=== PATIENT | female | born 1940 | race Caucasian/White ===

== ENCOUNTER → 2017-01-23 | Outpatient (CLI) | payer MEDICARE ==
--- NOTE | 2017-01-26 07:15 | MM ---
Reason for exam: screening (asymptomatic). Last mammogram was performed 1 year ago. History: Patient is postmenopausal and is nulliparous. Family history of breast cancer in maternal cousin at age 65. Physical Findings: A clinical breast exam by your physician is recommended on an annual basis and results should be correlated with mammographic findings. MG 3D Screening Mammo W/Cad Bilateral CC and MLO view(s) were taken. Prior study comparison: January 14, 2016, bilateral MG screening mammo w CAD. January 12, 2015, bilateral MG screening mammo w CAD. The breast tissue is almost entirely fat. No significant changes when compared with prior studies. ASSESSMENT: Negative, BI-RAD 1 RECOMMENDATION: Routine screening mammogram of both breasts in 1 year.
== END | disposition home or self-care (01) ==
LOC: RADMAMWWP 07:40
PROVIDERS: ATTEND Family Medicine
DX: Z12.31 Encounter for screening mammogram for malignant neoplasm of breast (principal)
CPT/HCPCS: 77063; G0202

== ENCOUNTER → 2017-06-25 | Outpatient (CLI) | payer MEDICARE ==
--- NOTE | 2017-06-26 08:56 | MR ---
EXAMINATION TYPE: MR shoulder LT wo con DATE OF EXAM: 06/25/2017 COMPARISON: Outside left shoulder x-ray June 09, 2017. HISTORY: Left shoulder pain TECHNIQUE: Multiplanar, multisequence imaging of the left shoulder is performed without contrast. FINDINGS: Exam is markedly suboptimal as there is significant motion artifact degradation. Rotator Cuff: Supraspinatus tendon is suspected fully torn up to level of the acromion seen best para coronal image 15. Infraspinatus tendon is felt to have increased signal with partial tear distally mo st prominent along the bursal surface. There is mild to moderate atrophy of supraspinatus muscle bulk . There is more mild atrophy of the infraspinatus muscle bulk. Subscapularis tendon is not well-visualized and suspected torn with retraction. Muscle bulk is mainta ined. Acromioclavicular Joint: There is joint space loss and spurring from the distal clavicle. There is hi gh riding humeral head. Glenohumeral Joint: There is moderate to large glenohumeral joint effusion. There is joint space loss with spurring from the inferior medial humeral head margin. There is large subchondral cysts superio r osseous labrum paracoronal image 13. Labrum: Degenerative tear superior labrum is felt present. Biceps Tendon: The long head of biceps is in normal location within bicipital groove. Bone marrow signal: No focal abnormal marrow signal is appreciated. Other: No additional significant abnormality is appreciated. IMPRESSION: Suboptimal study. 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 Moderate to advanced degenerative changes glenohumeral and acromiocla vicular joint. Probable full-thickness subscapularis and superior labral tears.
== END ==
LOC: RADMRIMAIN 10:44
PROVIDERS: ATTEND Orthopaedic Surgery
DX: M25.512 Pain in left shoulder (principal)

== ENCOUNTER → 2018-05-12 | Outpatient (CLI) | payer MEDICARE ==
--- NOTE | 2018-05-12 16:55 | BD ---
EXAMINATION TYPE: Axial Bone Density DATE OF EXAM: 05/12/2018 CLINICAL HISTORY: Height: 59.5 inches Weight: 222 FRAX RISK QUESTIONS: Alcohol (3 or more units per day): no Family History (Parent hip fracture): no Glucocorticoids (More than 3mos): no (Ex: prednisone, prednisolone, methylprednisolone, dexamethasone, and hydrocortisone). History of Fracture in Adulthood: yes, foot Secondary Osteoporosis: 1. Type 1 Diabetes: no 2. Hyperthyroidism: no 3. Menopause before 45: no 4. Malnutrition: no 5. Chronic liver disease: no Rheumatoid Arthritis: no Current Tobacco Use: no RISK FACTORS HISTORY OF: Family History of Osteoporosis: unsure Active: yes Diet low in dairy products/other sources of calcium: several servings a week Postmenopausal woman: yes Take estrogen and/or progesterone medications: no Lost more than 2 inches in height since high school: no, previously height was about 62 inches Frequent falls: no Poor Health: no Hyperparathyroidism: no Adrenal Insufficiency: no MEDICATIONS: Prednisone or other steroids: no Thyroid Medications: over the counter Which medication: SEA KELP Osteoporosis Medications: no Additional Medications: calcium & Vitamin D Additional History: osteoarthritis; thyroid nodules & recent biopsy of said; bilateral knee replacem ent EXAM MEASUREMENTS: Bone mineral densitometry was performed using the [employer] System. Bone mineral density as measured about the Lumbar spine is: ----- L1-L4(G/cm2): 1.438 T Score Values are as follows: ----- L2: 1.9 ----- L3: 2.4 ----- L4: 3.9 ----- L1-L4: 2.2 Bone mineral density has: Increased 4.7% since study of: 03/04/2009 Bone mineral density about the R hip (g/cm2): 0.804 Bone mineral density about the L hip (g/cm2): 0.798 T Score values are as follows: -----R Neck: -1.7 -----L Neck: -1.7 -----R Total: -0.5 -----L Total: -0.9 Bone mineral density has: Decreased -3.3% since study of: 03/04/2009 (more recent study done [email or web address]) IMPRESSION: Osteopenia (T Score between -2.5 and -1). There is slightly increased risk of fracture and the patient may be considered for treatment. Re-Screen 2-5 years. NOTE: T-SCORE=SD OF THE YOUNG ADULT MEAN.
--- NOTE | 2018-05-15 13:22 | MM ---
Reason for exam: screening (asymptomatic). Last mammogram was performed 1 year and 4 months ago. History: Patient is postmenopausal and is nulliparous. Family history of breast cancer in maternal cousin at age 65. MG 3D Screening Mammo W/Cad Bilateral CC and MLO view(s) were taken. Prior study comparison: January 23, 2017, bilateral MG 3d screening mammo w/cad. January 14, 2016, bilateral MG screening mammo w CAD. There are scattered fibroglandular densities. Stable benign calcifications. No discrete abnormallity. No significant changes when compared with prior studies. ASSESSMENT: Benign, BI-RAD 2 RECOMMENDATION: Routine screening mammogram of both breasts in 1 year.
== END | disposition home or self-care (01) ==
LOC: RADMAMWWP 10:06
PROVIDERS: ATTEND Family Medicine
DX: Z12.31 Encounter for screening mammogram for malignant neoplasm of breast (principal); M85.851 Other specified disorders of bone density and structure, right thigh; M85.852 Other specified disorders of bone density and structure, left thigh
CPT/HCPCS: 77063; 77067; 77080

== ENCOUNTER 2018-08-04 14:57 | Inpatient (IN) | payer MEDICARE ==
[2018-08-04] MEDS ORDERED: IPRATROPIUM-ALBUTEROL 3 ML NEB INHALATION STA (15:40)
--- NOTE | 2018-08-04 16:00 | XR ---
EXAMINATION TYPE: XR chest 2V DATE OF EXAM: 08/04/2018 COMPARISON: NONE HISTORY: Shortness of breath TECHNIQUE: Frontal and lateral views of the chest are obtained. FINDINGS: Scattered senescent parenchymal changes noted. Hyperinflation compatible with COPD. No evidence for infiltrate. No evidence for atelectasis. Heart size is stable. Fixed hiatal hernia. Mediastinal structures are stable and grossly unremarkable. No evidence for hilar prominence. Degenerative changes dorsal spine. IMPRESSION: 1. No evidence for acute pulmonary disease.
[2018-08-04 16:30] LABS: Basophils % (A) 0 %; Eosinophils # (A) 0.2 k/uL (0-0.7); Eosinophils % (A) 2 %; HCT 43.1 % (34.0-46.0); HGB 13.4 gm/dL (11.4-16.0); Lymphocytes # (A) 1.5 k/uL (1.0-4.8); Lymphocytes % (A) 13 %; MCH 25.3 pg (25.0-35.0); MCHC 31.1 g/dL (31.0-37.0); MCV 81.1 fL (80.0-100.0); Mean Platelet Volume 6.8; Monocytes # (A) 0.8 k/uL (0-1.0); Monocytes % (A) 6 %; Neutrophils % (A) 77 %; Platelet Count 203 k/uL (150-450); RBC 5.31 m/uL (3.80-5.40); RDW 15.7 % (11.5-15.5); WBC 11.6 k/uL (3.8-10.6)
[2018-08-04 16:37] LABS: ALT 63 U/L (9-52); AST 27 U/L (14-36); Albumin 3.5 g/dL (3.5-5.0); Alkaline Phosphatase 92 U/L (38-126); Anion Gap 7 mmol/L; Blood Urea Nitrogen 30 mg/dL (7-17); Calcium 8.7 mg/dL (8.4-10.2); Carbon Dioxide 24 mmol/L (22-30); Chloride 109 mmol/L (98-107); Glucose 86 mg/dL (74-99); Potassium 4.3 mmol/L (3.5-5.1); Sodium 140 mmol/L (137-145); Total Bilirubin 0.3 mg/dL (0.2-1.3); Total Protein 5.7 g/dL (6.3-8.2)
[2018-08-04 16:53] LABS: INR 0.9 (<1.2); Prothrombin Time 10.2 sec (9.0-12.0)
--- NOTE | 2018-08-04 17:36 | ED ---
URI HPI - General Source: patient Mode of arrival: wheelchair Limitations: no limitations <Heidy Ellis - Last Filed: 08/04/18 19:56> <Kyaw Bingham - Last Filed: 08/04/18 20:01> - General Chief Complaint: Upper Respiratory Infection Stated Complaint: SOB Time Seen by Provider: 08/04/18 15:21 - History of Present Illness Initial Comments: 77-year-old female presenting today for dyspnea on exertion. Patient states that she was sent by her primary care provider for progressive shortness of breath with ambulation. Patient states that she has had upper respiratory symptoms including cough and congestion for the past month. She states she's been various steroids, breathing treatments as well as antibiotic and nothing seems to help. Patient states she does have some lower extremity swelling. She denies any chest pain back pain headache visual changes neck stiffness sore throat. Patient states she has a cough however is nonproductive. When symptoms persisted she went to her primary care provider office today where she was sent to the emergency department for further evaluation. Patient denies smoking history or history of COPD. She denies history of cancer, recent travel, unilateral leg swelling, recent surgery, history of DVT, pulmonary embolus and a blood clot, patient denies any clotting disorders. Patient denies any significant change today, pt daughter and patient waere concerned because of persistent symptoms. Upon arrival patient is not overtly short of breath. She is oxygenating well on room air, and heart rate within normal limits. (Heidy Ellis) - Related Data Home Medications Medication Instructions Recorded Confirmed Aspirin 325 mg PO DAILY 08/03/14 08/04/18 Cetirizine HCl [Zyrtec] 10 mg PO HS 08/03/14 08/04/18 Cholecalciferol [Vitamin D3] 2,000 unit PO DAILY 08/03/14 08/04/18 Cod Liver Oil 1 cap PO DAILY 08/03/14 08/04/18 Diclofenac Sodium/Misoprostol 1 tab PO BID 08/03/14 08/04/18 [Arthrotec 75 mg-200 Mcg Tab] Fluticasone Propionate [Flonase 2 spray EA NOSTRIL DAILY 08/03/14 08/04/18 Allergy Relief] Niacin [Niacin ER] 500 mg PO DAILY 08/03/14 08/04/18 Omeprazole [PriLOSEC] 20 mg PO AC-BRKFST PRN 08/03/14 08/04/18 Pravastatin Sodium [Pravachol] 10 mg PO HS 08/03/14 08/04/18 cycloSPORINE [Restasis] 1 applicator BOTH EYES BID 08/03/14 08/04/18 ALPRAZolam [Xanax] 0.25 mg PO HS 08/04/18 08/04/18 Aspirin/Calcium Carbonate/Mag 325 mg PO DAILY 08/04/18 08/04/18 [Buffered Aspirin 325 mg Tb] Biotin 1000mg 1,000 mg PO DAILY 08/04/18 08/04/18 Cyanocobalamin (Vitamin B-12) 1,000 mcg PO MOTH 08/04/18 08/04/18 [Vitamin B-12] L.acidoph,Paracasei, B.lactis 1 cap PO DAILY 08/04/18 08/04/18 [Probiotic] Moxifloxacin HCl [Avelox] 400 mg PO DAILY 08/04/18 08/04/18 Emma-3 Fatty Acids [Emma-3] 1,000 mg PO DAILY 08/04/18 08/04/18 buPROPion XL [Wellbutrin Xl] 150 mg PO BID 08/04/18 08/04/18 diphenhydrAMINE HCL [Benadryl] 25 mg PO QID PRN 08/04/18 08/04/18 Allergies Allergy/AdvReac Type Severity Reaction Status Date / Time No Known Allergies Allergy Verified 08/04/18 16:24 Review of Systems ROS Other: All systems not noted in ROS Statement are negative. <Heidy Ellis - Last Filed: 08/04/18 19:56> ROS Other: All systems not noted in ROS Statement are negative. <Kyaw Bingham - Last Filed: 08/04/18 20:01> ROS Statement: Those systems with pertinent positive or pertinent negative responses have been documented in the HPI. Past Medical History Past Medical History: Eye Disorder, GERD/Reflux, Hyperlipidemia, Hypertension, Osteoarthritis (OA) History of Any Multi-Drug Resistant Organisms: None Reported Past Surgical History: Joint Replacement Additional Past Surgical History / Comment(s): both knees replaced,lt cataract removed Past Anesthesia/Blood Transfusion Reactions: No Reported Reaction Past Psychological History: No Psychological Hx Reported Smoking Status: Never smoker Past Alcohol Use History: None Reported Past Drug Use History: None Reported - Past Family History Father Family Medical History: No Reported History Additional Family Medical History / Comment(s): 95 Mother Family Medical History: CVA/TIA <Heidy Ellis - Last Filed: 08/04/18 19:56> General Exam Limitations: no limitations <Heidy Ellis - Last Filed: 08/04/18 19:56> - General Exam Comments Initial Comments: General: The patient is awake and alert, in no distress, and does not appear acutely ill. Eye: Pupils are equal, round and reactive to light, extra-ocular movements are intact. No nystagmus. There is normal conjunctiva bilaterally. No signs of icterus. Ears, nose, mouth and throat: There are moist mucous membranes and no oral lesions. Neck: The neck is supple, there is no tenderness or JVD. Cardiovascular: There is a regular rate and rhythm. No murmur, rub or gallop is appreciated. Respiratory: Lungs are clear to auscultation, respirations are non-labored, breath sounds are equal. No wheezes, stridor, or rhonchi. Fine crackles at lung bases L>R. Gastrointestinal: Soft, non-distended, non-tender abdomen without masses or organomegaly noted. There is no rebound or guarding present. No CVA tenderness. Bowel sounds are unremarkable. Musculoskeletal: Normal ROM, no tenderness. Strength 5/5. Sensation intact. Pulses equal bilaterally 2+. Neurological: A&O x 3. CN II-XII intact, There are no obvious motor or sensory deficits. Coordination appears grossly intact. Speech is normal. Skin: Skin is warm and dry and no rashes or lesions are noted. B/l mild pitting edema of the lower extremities. Psychiatric: Cooperative, appropriate mood & affect, normal judgment. (Anna Elliscisco Kimball) Course <Kyaw Bingham - Last Filed: 08/04/18 20:01> Vital Signs 08/04/18 08/04/18 08/04/18 15:02 15:59 16:18 Temperature 98.2 F Pulse Rate 79 79 80 Respiratory 18 Rate Blood Pressure 156/86 O2 Sat by Pulse 95 Oximetry 08/04/18 08/04/18 16:56 18:06 Temperature Pulse Rate 74 73 Respiratory 18 18 Rate Blood Pressure 149/84 161/80 O2 Sat by Pulse 95 95 Oximetry - Reevaluation(s) Reevaluation #1: 08/04/18 20:00 PA supervision: The patient presents with complaints of dyspnea sweats and exertion. She did present with an elevated d-dimer CAT scan with contrast shows no evidence of pulmonary embolism. She does have a right bundle-branch block is unclear whether this is new or old. I did examine the patient she is awake and alert. I did discuss the findings with patient family patient be admitted for evaluation of the above. The case is discussed with Dr. Connell. I do agree with the assessment and plan. (Kyaw Bingham) Medical Decision Making - Lab Data Result diagrams: 08/04/18 16:10 08/04/18 16:10 <Heidy Ellis - Last Filed: 08/04/18 19:56> - Lab Data Result diagrams: 08/04/18 16:10 08/04/18 16:10 <Kyaw Bingham - Last Filed: 08/04/18 20:01> - Medical Decision Making 77-year-old female presenting for cough increasing shortness of breath 3 weeks. Chest x-ray revealed no acute abdomen ALLERGIES however physical examination revealed fine crackles with left lung base being greater than right. Patient was given 1 g ceftriaxone. This is concerning for clinical pneumonia. Patient BMP within normal limits. No evidence of pleural effusion mild bilateral lower extremity edema. Patient denies fever. Patient does not appear overtly toxic or septic. D-dimer returned elevated at 2.25. CT angioma was obtained revealing no evidence of acute pulmonary embolism. Troponin negative, low suspicion for acute coronary syndrome as patient's symptoms and ongoing for 3 weeks with no complaints of chest pain abdominal pain epigastric jaw upper extremity paresthesias. Patient actually well on room air however with exertion patient appears overtly short of breath. After discussed the case attempting provider Dr. Bingham, patient will be admitted for further evaluation of shortness of breath. This was the recommendation by primary care provider. Dr. Harris spoke with the admitting provider Dr. Connell who accepted admission. (Heidy Ellis) - Lab Data Lab Results 08/04/18 08/04/18 08/04/18 Range/Units 16:10 16:10 16:10 WBC 11.6 H (3.8-10.6) k/uL RBC 5.31 (3.80-5.40) m/uL Hgb 13.4 (11.4-16.0) gm/dL Hct 43.1 (34.0-46.0) % MCV 81.1 (80.0-100.0) fL MCH 25.3 (25.0-35.0) pg MCHC 31.1 (31.0-37.0) g/dL RDW 15.7 H (11.5-15.5) % Plt Count 203 (150-450) k/uL Neutrophils % 77 % Lymphocytes % 13 % Monocytes % 6 % Eosinophils % 2 % Basophils % 0 % Neutrophils # 9.0 H (1.3-7.7) k/uL Lymphocytes # 1.5 (1.0-4.8) k/uL Monocytes # 0.8 (0-1.0) k/uL Eosinophils # 0.2 (0-0.7) k/uL Basophils # 0.0 (0-0.2) k/uL PT (9.0-12.0) sec INR (<1.2) APTT (22.0-30.0) sec D-Dimer (<0.60) mg/L FEU Sodium 140 (137-145) mmol/L Potassium 4.3 (3.5-5.1) mmol/L Chloride 109 H (98-107) mmol/L Carbon Dioxide 24 (22-30) mmol/L Anion Gap 7 mmol/L BUN 30 H (7-17) mg/dL Creatinine 0.65 (0.52-1.04) mg/dL Est GFR (CKD-EPI)AfAm >90 (>60 ml/min/1.73 sqM) Est GFR (CKD-EPI)NonAf 87 (>60 ml/min/1.73 sqM) Glucose 86 (74-99) mg/dL Calcium 8.7 (8.4-10.2) mg/dL Total Bilirubin 0.3 (0.2-1.3) mg/dL AST 27 (14-36) U/L ALT 63 H (9-52) U/L Alkaline Phosphatase 92 (38-126) U/L Troponin I (0.000-0.034) ng/mL NT-Pro-B Natriuret Pep pg/mL Total Protein 5.7 L (6.3-8.2) g/dL Albumin 3.5 (3.5-5.0) g/dL Urine Color Urine Appearance (Clear) Urine pH (5.0-8.0) Ur Specific [place] (1.001-1.035) Urine Protein (Negative) Urine Glucose (UA) (Negative) Urine Ketones (Negative) Urine Blood (Negative) Urine Nitrite (Negative) Urine Bilirubin (Negative) Urine Urobilinogen (<2.0) mg/dL Ur Leukocyte Esterase (Negative) Urine RBC (0-5) /hpf Urine WBC (0-5) /hpf Ur Squamous Epith Cells (0-4) /hpf Urine Bacteria (None) /hpf Urine Mucus (None) /hpf Influenza Type A RNA Not Detected (Not Detectd) Influenza Type B (PCR) Not Detected (Not Detectd) 08/04/18 08/04/18 08/04/18 Range/Units 16:10 16:10 16:10 WBC (3.8-10.6) k/uL RBC (3.80-5.40) m/uL Hgb (11.4-16.0) gm/dL Hct (34.0-46.0) % MCV (80.0-100.0) fL MCH (25.0-35.0) pg MCHC (31.0-37.0) g/dL RDW (11.5-15.5) % Plt Count (150-450) k/uL Neutrophils % % Lymphocytes % % Monocytes % % Eosinophils % % Basophils % % Neutrophils # (1.3-7.7) k/uL Lymphocytes # (1.0-4.8) k/uL Monocytes # (0-1.0) k/uL Eosinophils # (0-0.7) k/uL Basophils # (0-0.2) k/uL PT 10.2 (9.0-12.0) sec INR 0.9 (<1.2) APTT 19.0 L (22.0-30.0) sec D-Dimer (<0.60) mg/L FEU Sodium (137-145) mmol/L Potassium (3.5-5.1) mmol/L Chloride (98-107) mmol/L Carbon Dioxide (22-30) mmol/L Anion Gap mmol/L BUN (7-17) mg/dL Creatinine (0.52-1.04) mg/dL Est GFR (CKD-EPI)AfAm (>60 ml/min/1.73 sqM) Est GFR (CKD-EPI)NonAf (>60 ml/min/1.73 sqM) Glucose (74-99) mg/dL Calcium (8.4-10.2) mg/dL Total Bilirubin (0.2-1.3) mg/dL AST (14-36) U/L ALT (9-52) U/L Alkaline Phosphatase (38-126) U/L Troponin I 0.013 (0.000-0.034) ng/mL NT-Pro-B Natriuret Pep 288 pg/mL Total Protein (6.3-8.2) g/dL Albumin (3.5-5.0) g/dL Urine Color Urine Appearance (Clear) Urine pH (5.0-8.0) Ur Specific [place] (1.001-1.035) Urine Protein (Negative) Urine Glucose (UA) (Negative) Urine Ketones (Negative) Urine Blood (Negative) Urine Nitrite (Negative) Urine Bilirubin (Negative) Urine Urobilinogen (<2.0) mg/dL Ur Leukocyte Esterase (Negative) Urine RBC (0-5) /hpf Urine WBC (0-5) /hpf Ur Squamous Epith Cells (0-4) /hpf Urine Bacteria (None) /hpf Urine Mucus (None) /hpf Influenza Type A RNA (Not Detectd) Influenza Type B (PCR) (Not Detectd) 08/04/18 08/04/18 Range/Units 16:10 17:40 WBC (3.8-10.6) k/uL RBC (3.80-5.40) m/uL Hgb (11.4-16.0) gm/dL Hct (34.0-46.0) % MCV (80.0-100.0) fL MCH (25.0-35.0) pg MCHC (31.0-37.0) g/dL RDW (11.5-15.5) % Plt Count (150-450) k/uL Neutrophils % % Lymphocytes % % Monocytes % % Eosinophils % % Basophils % % Neutrophils # (1.3-7.7) k/uL Lymphocytes # (1.0-4.8) k/uL Monocytes # (0-1.0) k/uL Eosinophils # (0-0.7) k/uL Basophils # (0-0.2) k/uL PT (9.0-12.0) sec INR (<1.2) APTT (22.0-30.0) sec D-Dimer 2.25 H (<0.60) mg/L FEU Sodium (137-145) mmol/L Potassium (3.5-5.1) mmol/L Chloride (98-107) mmol/L Carbon Dioxide (22-30) mmol/L Anion Gap mmol/L BUN (7-17) mg/dL Creatinine (0.52-1.04) mg/dL Est GFR (CKD-EPI)AfAm (>60 ml/min/1.73 sqM) Est GFR (CKD-EPI)NonAf (>60 ml/min/1.73 sqM) Glucose (74-99) mg/dL Calcium (8.4-10.2) mg/dL Total Bilirubin (0.2-1.3) mg/dL AST (14-36) U/L ALT (9-52) U/L Alkaline Phosphatase (38-126) U/L Troponin I (0.000-0.034) ng/mL NT-Pro-B Natriuret Pep pg/mL Total Protein (6.3-8.2) g/dL Albumin (3.5-5.0) g/dL Urine Color Yellow Urine Appearance Clear (Clear) Urine pH 5.5 (5.0-8.0) Ur Specific [place] 1.023 (1.001-1.035) Urine Protein Negative (Negative) Urine Glucose (UA) Negative (Negative) Urine Ketones Negative (Negative) Urine Blood Negative (Negative) Urine Nitrite Negative (Negative) Urine Bilirubin Negative (Negative) Urine Urobilinogen <2.0 (<2.0) mg/dL Ur Leukocyte Esterase Small H (Negative) Urine RBC <1 (0-5) /hpf Urine WBC 4 (0-5) /hpf Ur Squamous Epith Cells <1 (0-4) /hpf Urine Bacteria Rare H (None) /hpf Urine Mucus Rare H (None) /hpf Influenza Type A RNA (Not Detectd) Influenza Type B (PCR) (Not Detectd) Disposition Is patient prescribed a controlled substance at d/c from ED?: No Time of Disposition: 20:00 Decision to Admit Reason: Admit from EC Decision Date: 08/04/18 Decision Time: 20:00 <Heidy Ellis - Last Filed: 08/04/18 19:56> <Kyaw Bingham - Last Filed: 08/04/18 20:01> Clinical Impression: Shortness of breath Disposition: ADMITTED IP TO THIS HOSP Additional Instructions: . Referrals: Tressa Farris MD [Primary Care Provider] - 1-2 days
[2018-08-04] MEDS ORDERED: cefTRIAXone IN SWFI 1,000 MG/10 ML SYRINGE IVP STA (17:41)
[2018-08-04 18:30] LABS: Appearance,Urine Clear (Clear); Bacteria,Urine Rare /hpf; Bilirubin,Urine Negative (Negative); Blood,Urine Negative (Negative); Color,Urine Yellow; Glucose,Urine (UA) Negative (Negative); Ketones,Urine Negative (Negative); Leukocyte Esterase,Urine Small (Negative); Mucus,Urine Rare /hpf; Nitrite,Urine Negative (Negative); PH, Urine 5.5 (5.0-8.0); Protein,Urine Negative (Negative); RBC,Urine <1 /hpf (0-5); Specific Gravity,Urine 1.023 (1.001-1.035); Squamous Epithelial Cell,Urine <1 /hpf (0-4); Urobilinogen,Urine <2.0 mg/dL (<2.0); WBC,Urine 4 /hpf (0-5)
--- NOTE | 2018-08-04 19:25 | CT ---
EXAMINATION TYPE: CT chest angio for PE DATE OF EXAM: 08/04/2018 COMPARISON: None HISTORY: Shortness of breath. CT DLP: 426.7 mGycm Automated exposure control for dose reduction was used. CONTRAST: CT Chest for pulmonary embolism performed with with IV Contrast, patient injected with 55ml mL of Iso axel 370. FINDINGS: There are 3-D post processed images. The lungs are clear of consolidation. There is no evidence of a pulmonary mass. There is some linear density at the left posterior lung base. There is no pleural effusion. There is moderate-sized hiatal hernia. . There are left renal parapelvic cysts. Heart appears slightly enlarged. Thoracic aorta shows some atheromatous change. The ascending aorta m easures 3.7 cm. There is no evidence of aortic dissection. There is normal contrast opacification of the pulmonary arteries. I see no filling defect. There are no hilar masses. There is no mediastinal adenopathy. There is some spurring in the thoracic spine. I see no bony destructive process. IMPRESSION: No evidence of pulmonary embolism. Mild cardiomegaly. Subsegmental atelectasis or scarring in the lef t lower lobe.
[2018-08-04] MEDS ORDERED: NALOXONE 0.4 MG/ML 1 ML VIAL IV PRN (20:14)
[2018-08-04] MEDS ORDERED: diphenhydrAMINE 25 MG CAP PO PRN (23:08)
[2018-08-04] MEDS ORDERED: LORATADINE 10 MG TAB PO PRN (23:08)
[2018-08-05] MEDS: SODIUM CHLORIDE 0.9% 1,000 ML IV SCH ×2 (02:41→22:06)
[2018-08-05] MEDS ORDERED: PANTOPRAZOLE 40 MG TABLET PO PRN (07:30)
[2018-08-05 08:37] LABS: Basophils % (A) 0 %; Eosinophils # (A) 0.2 k/uL (0-0.7); Eosinophils % (A) 2 %; HCT 42.1 % (34.0-46.0); HGB 13.3 gm/dL (11.4-16.0); Lymphocytes # (A) 1.5 k/uL (1.0-4.8); Lymphocytes % (A) 13 %; MCH 25.8 pg (25.0-35.0); MCHC 31.7 g/dL (31.0-37.0); MCV 81.5 fL (80.0-100.0); Mean Platelet Volume 6.3; Monocytes # (A) 0.7 k/uL (0-1.0); Monocytes % (A) 6 %; Neutrophils # (A) 8.7 k/uL (1.3-7.7); Neutrophils % (A) 77 %; Platelet Count 187 k/uL (150-450); RBC 5.16 m/uL (3.80-5.40); RDW 15.1 % (11.5-15.5); WBC 11.2 k/uL (3.8-10.6)
[2018-08-05 08:55] LABS: ALT 59 U/L (9-52); AST 19 U/L (14-36); Albumin 3.1 g/dL (3.5-5.0); Alkaline Phosphatase 80 U/L (38-126); Anion Gap 4 mmol/L; Blood Urea Nitrogen 20 mg/dL (7-17); Calcium 8.5 mg/dL (8.4-10.2); Carbon Dioxide 26 mmol/L (22-30); Chloride 106 mmol/L (98-107); Glucose 82 mg/dL (74-99); Potassium 4.3 mmol/L (3.5-5.1); Sodium 136 mmol/L (137-145); Total Bilirubin 0.6 mg/dL (0.2-1.3); Total Protein 5.3 g/dL (6.3-8.2)
[2018-08-05] MEDS ORDERED: FLUTICASONE 50MCG/SPRAY NASAL 16GM EA NOSTRIL PRN (09:00)
[2018-08-05] MEDS: ASPIRIN 325 MG TAB PO SCH (09:23)
[2018-08-05] MEDS: buPROPion XL 150 MG TAB.ER.24H PO SCH ×2 (09:23→21:53)
[2018-08-05] MEDS: cycloSPORINE 0.05% OPHTH 0.4 ML DROPERETTE BOTH EYES SCH ×2 (09:24→21:53)
--- NOTE | 2018-08-05 10:01 | P.HPIM ---
History of Present Illness H&P Date: 08/05/18 This is a 77-year-old female patient of Dr. Farris. Patient presented with complaints of increased shortness of breath with activity. Patient states that over the past month she has had upper respiratory symptoms including cough and congestion which she was treated outpatient with steroids, antibiotics and breathing treatments. Patient reports that she has increased shortness of breath with activity. Patient is still having occasional cough. And having some increased swelling to lower extremities. Patient does have a past medical history of eye disorder, GERD, hyperlipidemia, hypertension, osteoarthritis and bilateral knee replacements. Patient denies nicotine dependence. Chest x-ray completed showing no evidence for acute pulmonary disease. D-dimer elevated at 2.25. Chest CTA completed showing no evidence of pulmonary embolism. Mild cardiomegaly. Submental atelectasis or scarring in the left lower lobe. Troponins negative 3. BNP 288. Cardiology and pulmonary services have been consulted. At this time patient is complaining of some shortness breath with exertion. Patient denies nausea vomiting or diarrhea. Patient denies chest pain. Patient denies any urinary burning or frequency. UA showing small amount of leukocyte Estrace. Urine culture ordered. Patient white blood cell elevated at 11.8. Patient started on Rocephin. Review of Systems please refer to HPI otherwise unremarkable Past Medical History Past Medical History: Eye Disorder, GERD/Reflux, Hyperlipidemia, Hypertension, Osteoarthritis (OA) History of Any Multi-Drug Resistant Organisms: None Reported Past Surgical History: Joint Replacement Additional Past Surgical History / Comment(s): both knees replaced,lt cataract removed Past Anesthesia/Blood Transfusion Reactions: No Reported Reaction Smoking Status: Never smoker - Past Family History Father Family Medical History: No Reported History Additional Family Medical History / Comment(s): 95 Mother Family Medical History: CVA/TIA Medications and Allergies Home Medications Medication Instructions Recorded Confirmed Type Cetirizine HCl [Zyrtec] 10 mg PO HS PRN 08/03/14 08/04/18 History Cholecalciferol [Vitamin D3] 2,000 unit PO DAILY 08/03/14 08/04/18 History Cod Liver Oil 1 cap PO DAILY 08/03/14 08/04/18 History Diclofenac Sodium/Misoprostol 1 tab PO BID 08/03/14 08/04/18 History [Arthrotec 75 mg-200 Mcg Tab] Fluticasone Propionate [Flonase 2 spray EA NOSTRIL DAILY PRN 08/03/14 08/04/18 History Allergy Relief] Niacin [Niacin ER] 500 mg PO DAILY 08/03/14 08/04/18 History Omeprazole [PriLOSEC] 20 mg PO AC-BRKFST PRN 08/03/14 08/04/18 History Pravastatin Sodium [Pravachol] 10 mg PO HS 08/03/14 08/04/18 History cycloSPORINE [Restasis] 1 applicator BOTH EYES BID 08/03/14 08/04/18 History ALPRAZolam [Xanax] 0.25 mg PO HS 08/04/18 08/04/18 History Aspirin/Calcium Carbonate/Mag 325 mg PO DAILY 08/04/18 08/04/18 History [Buffered Aspirin 325 mg Tb] Biotin 1000mg 1,000 mg PO DAILY 08/04/18 08/04/18 History Cyanocobalamin (Vitamin B-12) 1,000 mcg PO MOTH 08/04/18 08/04/18 History [Vitamin B-12] L.acidoph,Paracasei, B.lactis 1 cap PO DAILY 08/04/18 08/04/18 History [Probiotic] Moxifloxacin HCl [Avelox] 400 mg PO DAILY 08/04/18 08/04/18 History Alvo-3 Fatty Acids [Alvo-3] 1,000 mg PO DAILY 08/04/18 08/04/18 History buPROPion XL [Wellbutrin Xl] 150 mg PO BID 08/04/18 08/04/18 History diphenhydrAMINE HCL [Benadryl] 25 mg PO QID PRN 08/04/18 08/04/18 History Allergies Allergy/AdvReac Type Severity Reaction Status Date / Time No Known Allergies Allergy Verified 08/04/18 22:22 Physical Exam Vitals: Vital Signs Temp Pulse Pulse Resp BP BP Pulse Ox 08/05/18 08:00 97.6 F 64 18 165/76 96 08/05/18 03:47 97.5 F L 67 18 159/73 97 08/05/18 02:35 18 08/04/18 23:17 18 08/04/18 22:27 97.7 F 82 18 153/73 96 08/04/18 21:16 98.7 F 68 16 160/84 98 08/04/18 18:06 73 18 161/80 95 08/04/18 16:56 74 18 149/84 95 08/04/18 16:18 80 08/04/18 15:59 79 08/04/18 15:02 98.2 F 79 18 156/86 95 Intake and Output 08/04/18 08/05/18 08/05/18 22:59 06:59 14:59 Other: # Voids 1 1 Weight 99.79 kg Head normocephalic Neck supple Lungs clear to auscultation bilaterally no wheezing or crackles Heart regular rate and rhythm S1-S2, no rub or gallop Abdomen is soft nontender nondistended positive bowel sounds no hepatosplenomegaly Extremities +1 lower extremity edema Neuro alert and orientated to 3 Results CBC & Chem 7: 08/05/18 08:20 08/05/18 08:20 Labs: Abnormal Lab Results - Last 24 Hours (Table) 08/04/18 08/04/18 08/04/18 Range/Units 16:10 16:10 16:10 WBC 11.6 H (3.8-10.6) k/uL RDW 15.7 H (11.5-15.5) % Neutrophils # 9.0 H (1.3-7.7) k/uL APTT 19.0 L (22.0-30.0) sec D-Dimer (<0.60) mg/L FEU Sodium (137-145) mmol/L Chloride 109 H (98-107) mmol/L BUN 30 H (7-17) mg/dL ALT 63 H (9-52) U/L Total Protein 5.7 L (6.3-8.2) g/dL Albumin (3.5-5.0) g/dL Ur Leukocyte Esterase (Negative) Urine Bacteria (None) /hpf Urine Mucus (None) /hpf 08/04/18 08/04/18 08/05/18 Range/Units 16:10 17:40 08:20 WBC 11.2 H (3.8-10.6) k/uL RDW (11.5-15.5) % Neutrophils # 8.7 H (1.3-7.7) k/uL APTT (22.0-30.0) sec D-Dimer 2.25 H (<0.60) mg/L FEU Sodium (137-145) mmol/L Chloride (98-107) mmol/L BUN (7-17) mg/dL ALT (9-52) U/L Total Protein (6.3-8.2) g/dL Albumin (3.5-5.0) g/dL Ur Leukocyte Esterase Small H (Negative) Urine Bacteria Rare H (None) /hpf Urine Mucus Rare H (None) /hpf 08/05/18 Range/Units 08:20 WBC (3.8-10.6) k/uL RDW (11.5-15.5) % Neutrophils # (1.3-7.7) k/uL APTT (22.0-30.0) sec D-Dimer (<0.60) mg/L FEU Sodium 136 L (137-145) mmol/L Chloride (98-107) mmol/L BUN 20 H (7-17) mg/dL ALT 59 H (9-52) U/L Total Protein 5.3 L (6.3-8.2) g/dL Albumin 3.1 L (3.5-5.0) g/dL Ur Leukocyte Esterase (Negative) Urine Bacteria (None) /hpf Urine Mucus (None) /hpf Thrombosis Risk Factor Assmnt - Choose All That Apply Each Risk Factor Represents 3 Points: Age 75 years or older Thrombosis Risk Factor Assessment Total Risk Factor Score: 3 Thrombosis Risk Factor Assessment Level: Moderate Risk Assessment and Plan Assessment: 1. Increased shortness of breath activity. Chest x-ray negative for acute pulmonary process. CTA negative for PE. Troponins negative 3 BNP 288. 2-D echo has been ordered cardiology and pulmonary service is consulted 2. Elevated d-dimer. D-dimer elevated to 2.25. CTA negative for pulmonary embolism. Will order bilateral venous Doppler to rule out DVT 3. Urinary tract infection. UA showing small amount of leukocyte Estrace. Urine culture ordered. Patient currently on Rocephin. White blood cell elevated at 11.2 4. History of eye disorder 5. History of GERD 6. History of hyperlipidemia 7. History of essential hypertension 8. History of osteoarthritis DVT prophylaxis Lovenox. GI prophylaxis Protonix. Cardiology and pulmonary service is consulted. 2D echo ordered Venous Doppler ordered to rule out DVT Time with Patient: Greater than 30 (Greater than 60% of the total time spent in counseling and coordination of care. I performed an examination of the patient and discussed their management with the Nurse Practitioner. I have reviewed the Nurse Practitioner's notes and agree with the documented findings and plan of care)
[2018-08-05] MEDS: MISOPROSTOL PO SCH ×2 (10:07→21:53)
[2018-08-05] MEDS: DICLOFENAC SODIUM PO SCH ×2 (10:07→21:53)
[2018-08-05] MEDS ORDERED: AMOXIC-POT CLAV 875-125MG 1 EACH TAB PO SCH (10:45)
--- NOTE | 2018-08-05 10:57 | ECHOF ---
Referral Reason:SOB MEASUREMENTS -------- HEIGHT: 152.4 cm WEIGHT: 99.8 kg BP: IVSd: 1.4 cm (0.6 - 1.1) LVIDd: 3.9 cm (3.9 - 5.3) LVPWd: 1.6 cm (0.6 - 1.1) IVSs: 1.9 cm LVIDs: 3.4 cm LVPWs: 1.4 cm LAESV Index (A-L): 37.43 ml/m Ao Diam: 3.0 cm (2.0 - 3.7) AV Cusp: 2.7 cm (1.5 - 2.6) LA Diam: 4.9 cm (2.7 - 3.8) MV EXCURSION: 24.642 mm (> 18.000) MV EF SLOPE: 97 mm/s (70 - 150) EPSS: 0.5 cm MV E Andrez: 0.46 m/s MV DecT: 234 ms MV A Andrez: 0.77 m/s MV E/A Ratio: 0.59 RAP: 5.00 mmHg RVSP: 13.38 mmHg FINDINGS -------- Sinus rhythm. This was a technically adequate study. The left ventricular size is normal. There is moderate concentric left ventricular hypertrophy. O verall left ventricular systolic function is normal with, an EF between 55 - 60 %. The right ventricle is normal in size. The left atrium is markedly dilated. LA is severely dilated >40 ml/m2 There is mild aortic valve sclerosis. There is no evidence of aortic regurgitation. Mild mitral annular calcification present. Mild mitral regurgitation is present. Mild tricuspid regurgitation present. There is no evidence of pulmonary hypertension. The right v entricular systolic pressure, as measured by Doppler, is 13.38mmHg. There is no pulmonic regurgitation present. The aortic root size is normal. There is no pericardial effusion. CONCLUSIONS -------- 1. The left ventricular size is normal. 2. There is moderate concentric left ventricular hypertrophy. 3. The right ventricle is normal in size. 4. The left atrium is markedly dilated. 5. LA is severely dilated >40 ml/m2 6. Interatrial Septum not well visulized. 7. There is mild aortic valve sclerosis. 8. Mild mitral annular calcification present. 9. Mild mitral regurgitation is present. 10. Mild tricuspid regurgitation present. 11. There is no evidence of pulmonary hypertension. 12. The right ventricular systolic pressure, as measured by Doppler, is 13.38mmHg. 13. There is no pulmonic regurgitation present. 14. The aortic root size is normal. 15. There is no pericardial effusion. PHYSICAL THERAPY AIDE: Annabella Booker RDCS
--- NOTE | 2018-08-05 11:43 | US ---
EXAMINATION TYPE: US venous doppler duplex LE DATE OF EXAM: 08/05/2018 11:10 AM COMPARISON: NONE CLINICAL HISTORY: r/o DVT. SIDE PERFORMED: Bilateral TECHNIQUE: The lower extremity deep venous system is examined utilizing real time linear array sonog [place] with graded compression, doppler sonography and color-flow sonography. VESSELS IMAGED: External Iliac Vein (EIV) Common Femoral Vein Deep Femoral Vein Greater Saphenous Vein * Femoral Vein Popliteal Vein Small Saphenous Vein * Proximal Calf Veins (* superficial vessels) Right Leg: At the level of the proximal femoral vein there is some non-occluding thrombus. Left Leg: At the level mid popliteal vein it is not completely compressible, blood flow is seen at t his level. IMPRESSION: 1. Exam is positive for DVT proximal femoral vein nonoccluding. 2. There is limitation of the left popliteal vein which is not completely compressible. Color flow is seen.
[2018-08-05] MEDS ORDERED: ENOXAPARIN 40 MG/0.4 ML SYRINGE SQ STA (11:57)
[2018-08-05] MEDS: predniSONE 10 MG TAB PO SCH (12:07)
--- NOTE | 2018-08-05 12:29 | CT ---
EXAMINATION TYPE: CT sinus wo con DATE OF EXAM: 08/05/2018 COMPARISON: 06/24/2015 HISTORY: Chronic sinusitis CT DLP: 405.8 mGycm CONTRAST: 0 mL of Isovue 300 The paranasal sinuses are examined in the axial plane at 2 mm thick sections. Reconstructed images i n the coronal plane were obtained. There is dental amalgam scatter artifact There is an air-fluid level within the right maxillary sinus. Correlate for acute right maxillary sin usitis. Mild mucosal thickening is through scattered ethmoid air cells. The sphenoid sinuses are cl ear. The frontal sinuses are clear. The septum is evaluated. There is septal deviation to the . The ostiomeatal units are patent. There is hyperostosis frontalis internus, normal variant. IMPRESSIONS: 1. Clinical correlation recommended for acute right maxillary sinusitis.
[2018-08-05] MEDS ORDERED: HEPARIN SODIUM,PORCINE 10,000 UNIT/ML 1 ML VIAL IV ONE (13:07)
[2018-08-05] MEDS ORDERED: HEPARIN SODIUM,PORCINE 5,000 UNIT/ML 1 ML VIAL IV PRN (13:07)
--- NOTE | 2018-08-05 13:45 | P.CNPUL ---
History of Present Illness Consult date: 08/05/18 Requesting physician: Douglas Connell Reason for consult: other Chief complaint: Dyspnea History of present illness: This is a 77-year-old white female patient of Dr. Farris with past medical history of hypertension, hyperlipidemia, GERD/reflux, chronic sinusitis, with history of previous sinusoplasty, who presented to the emergency department on 08/04/2018 with complaints of exertional dyspnea. Patient has had ongoing symptoms of upper respiratory infection, clonidine cough, nasal congestion, nasal drainage, facial pressure over the sinuses, sore throat for the past month. She states she has been treated on an outpatient basis by her PCP with various steroids, breathing treatments and antibiotics and her symptoms have not improved. She has developed some lower extremity swelling. She did deny chest pain, neck pain, back pain, neck stiffness. Her cough is nonproductive. Patient has no chronic lung disease, she is is a lifetime nonsmoker. Chest x- ray showed no evidence for acute pulmonary disease, influenza screen was negative, lab work did not show any significant leukocytosis, white blood cell count is 11.6, hemoglobin is 13.4, d-dimer was elevated at 2.[address] angios chest was obtained, and was negative for evidence of pulmonary embolism showed some limited atelectasis at the left base. Small hiatal hernia. No other acute pulmonary findings. Electrolytes and renal profile were unremarkable, urinalysis showed a small leuks, rare bacteria, RBC less than 1, and white blood cell count of 4, low suspicion for UTI. Patient was started on empiric antibiotics in the form of Rocephin. And we were consulted in regards to patient's dyspnea. Review of Systems All systems: negative Constitutional: Denies chills, Denies fever Eyes: denies blurred vision, denies pain Ears, nose, mouth and throat: Reports nasal congestion, Reports nasal discharge, Reports sinus pain, Reports sinus pressure, Reports sore throat, Denies headache Cardiovascular: Denies chest pain, Denies shortness of breath Respiratory: Denies cough Gastrointestinal: Denies abdominal pain, Denies diarrhea, Denies nausea, Denies vomiting Genitourinary: Denies dysuria, Denies hematuria Musculoskeletal: Denies myalgias Integumentary: Denies pruritus, Denies rash Neurological: Denies numbness, Denies weakness Psychiatric: Denies anxiety, Denies depression Endocrine: Denies fatigue, Denies weight change Past Medical History Past Medical History: Eye Disorder, GERD/Reflux, Hyperlipidemia, Hypertension, Osteoarthritis (OA) History of Any Multi-Drug Resistant Organisms: None Reported Past Surgical History: Joint Replacement Additional Past Surgical History / Comment(s): both knees replaced,lt cataract removed Past Anesthesia/Blood Transfusion Reactions: No Reported Reaction Smoking Status: Never smoker - Past Family History Father Family Medical History: No Reported History Additional Family Medical History / Comment(s): 95 Mother Family Medical History: CVA/TIA Medications and Allergies Home Medications Medication Instructions Recorded Confirmed Type Cetirizine HCl [Zyrtec] 10 mg PO HS PRN 08/03/14 08/04/18 History Cholecalciferol [Vitamin D3] 2,000 unit PO DAILY 08/03/14 08/04/18 History Cod Liver Oil 1 cap PO DAILY 08/03/14 08/04/18 History Diclofenac Sodium/Misoprostol 1 tab PO BID 08/03/14 08/04/18 History [Arthrotec 75 mg-200 Mcg Tab] Fluticasone Propionate [Flonase 2 spray EA NOSTRIL DAILY PRN 08/03/14 08/04/18 History Allergy Relief] Niacin [Niacin ER] 500 mg PO DAILY 08/03/14 08/04/18 History Omeprazole [PriLOSEC] 20 mg PO AC-BRKFST PRN 08/03/14 08/04/18 History Pravastatin Sodium [Pravachol] 10 mg PO HS 08/03/14 08/04/18 History cycloSPORINE [Restasis] 1 applicator BOTH EYES BID 08/03/14 08/04/18 History ALPRAZolam [Xanax] 0.25 mg PO HS 08/04/18 08/04/18 History Aspirin/Calcium Carbonate/Mag 325 mg PO DAILY 08/04/18 08/04/18 History [Buffered Aspirin 325 mg Tb] Biotin 1000mg 1,000 mg PO DAILY 08/04/18 08/04/18 History Cyanocobalamin (Vitamin B-12) 1,000 mcg PO MOTH 08/04/18 08/04/18 History [Vitamin B-12] L.acidoph,Paracasei, B.lactis 1 cap PO DAILY 08/04/18 08/04/18 History [Probiotic] Moxifloxacin HCl [Avelox] 400 mg PO DAILY 08/04/18 08/04/18 History [place]-3 Fatty Acids [[place]-3] 1,000 mg PO DAILY 08/04/18 08/04/18 History buPROPion XL [Wellbutrin Xl] 150 mg PO BID 08/04/18 08/04/18 History diphenhydrAMINE HCL [Benadryl] 25 mg PO QID PRN 08/04/18 08/04/18 History Allergies Allergy/AdvReac Type Severity Reaction Status Date / Time No Known Allergies Allergy Verified 08/04/18 22:22 Physical Exam Vitals: Vital Signs Temp Pulse Pulse Resp BP BP Pulse Ox 08/05/18 11:38 98.7 F 73 18 169/75 99 08/05/18 08:00 97.6 F 64 18 165/76 96 08/05/18 03:47 97.5 F L 67 18 159/73 97 08/05/18 02:35 18 08/04/18 23:17 18 08/04/18 22:27 97.7 F 82 18 153/73 96 08/04/18 21:16 98.7 F 68 16 160/84 98 08/04/18 18:06 73 18 161/80 95 08/04/18 16:56 74 18 149/84 95 08/04/18 16:18 80 08/04/18 15:59 79 08/04/18 15:02 98.2 F 79 18 156/86 95 Intake and Output 08/04/18 08/05/18 08/05/18 22:59 06:59 14:59 Intake Total 200 Balance 200 Intake: Oral 200 Other: # Voids 1 1 Weight 99.79 kg GENERAL EXAM: Alert, pleasant, 77-year-old white female comfortable in no apparent distress. HEAD: Normocephalic/atraumatic. Facial pressure and pain with palpation over maxillary sinuses EYES: Normal reaction of pupils, equal size. Conjunctiva pink, sclera white. NOSE: Clear with pink turbinates. THROAT: No erythema or exudates. NECK: No masses, no JVD, no thyroid enlargement, no adenopathy. CHEST: No chest wall deformity. Symmetrical expansion. LUNGS: Equal air entry with no crackles, wheeze, rhonchi or dullness. CVS: Regular rate and rhythm, normal S1 and S2, no gallops, no murmurs, no rubs ABDOMEN: Soft, nontender. No hepatosplenomegaly, normal bowel sounds, no guarding or rigidity. EXTREMITIES: No clubbing, no edema, no cyanosis, 2+ pulses and upper and lower extremities. MUSCULOSKELETAL: Muscle strength and tone normal. SPINE: No scoliosis or deformity SKIN: No rashes CENTRAL NERVOUS SYSTEM: Alert and oriented -3. No focal deficits, tone is normal in all 4 extremities. PSYCHIATRIC: Alert and oriented -3. Appropriate affect. Intact judgment and insight. Results - Laboratory Findings CBC and BMP: 08/05/18 08:20 08/05/18 08:20 PT/INR, D-dimer PT 10.2 sec (9.0-12.0) 08/04/18 16:10 INR 0.9 (<1.2) 08/04/18 16:10 D-Dimer 2.25 mg/L FEU (<0.60) H 08/04/18 16:10 Abnormal lab findings: Abnormal Labs 08/04/18 08/04/18 08/04/18 16:10 16:10 16:10 WBC 11.6 H RDW 15.7 H Neutrophils # 9.0 H APTT 19.0 L D-Dimer Sodium Chloride 109 H BUN 30 H ALT 63 H Total Protein 5.7 L Albumin Ur Leukocyte Esterase Urine Bacteria Urine Mucus 08/04/18 08/04/18 08/05/18 16:10 17:40 08:20 WBC 11.2 H RDW Neutrophils # 8.7 H APTT D-Dimer 2.25 H Sodium Chloride BUN ALT Total Protein Albumin Ur Leukocyte Esterase Small H Urine Bacteria Rare H Urine Mucus Rare H 08/05/18 08:20 WBC RDW Neutrophils # APTT D-Dimer Sodium 136 L Chloride BUN 20 H ALT 59 H Total Protein 5.3 L Albumin 3.1 L Ur Leukocyte Esterase Urine Bacteria Urine Mucus - Diagnostic Findings Chest x-ray: report reviewed, image reviewed CT scan - chest: report reviewed, image reviewed Assessment and Plan Plan: Assessment: #1. Acute on chronic sinusitis, with failure of outpatient treatment #2. Elevated d-dimer, nonspecific, CT angios chest was negative for pulmonary embolism, lower extremity Dopplers showed nonoccluding thrombus in the right femoral vein, and noncompressibility of the mid popliteal vein in the left leg but blood flow was seen at this level #3. Limited atelectasis at the left base, no other acute pulmonary process #4. Lifetime nonsmoker #5. Hypertension, hyperlipidemia #6. GERD/reflux, small hiatal hernia seen on the CT angios of the chest #7. Previous history of sinus of plasty for years ago, patient follows with Dr. Baez Plan: We'll switch the antibiotic coverage to Augmentin and prednisone, ration symptoms likely related to acute on chronic sinusitis, will obtain CT of the sinuses. CT showed air fluid level within the right maxillary sinus likely related to acute right maxillary sinusitis. From pulmonary perspective patient could be considered for discharge home today. I performed a history & physical examination of the patient and discussed their management with my nurse practitioner, Evonne Willoughby. I reviewed the nurse practitioner's note and agree with the documented findings and plan of care. Lung sounds are positive for clear lung sounds. The findings and the impression was discussed with the patient. I attest to the documentation by the nurse practitioner. Time with Patient: Greater than 30
[2018-08-05 13:53] LABS: INR 0.9 (<1.2); Partial Thromboplastin Time 22.7 sec (22.0-30.0); Prothrombin Time 10.1 sec (9.0-12.0)
[2018-08-05 13:54] LABS: Basophils % (A) 0 %; Eosinophils # (A) 0.1 k/uL (0-0.7); Eosinophils % (A) 1 %; HCT 43.1 % (34.0-46.0); HGB 13.6 gm/dL (11.4-16.0); Hypochromasia Slight; Lymphocytes # (A) 1.4 k/uL (1.0-4.8); Lymphocytes % (A) 12 %; MCH 25.8 pg (25.0-35.0); MCHC 31.7 g/dL (31.0-37.0); MCV 81.3 fL (80.0-100.0); Mean Platelet Volume 6.9; Monocytes # (A) 0.6 k/uL (0-1.0); Monocytes % (A) 6 %; Neutrophils % (A) 80 %; Platelet Count 183 k/uL (150-450); RBC 5.29 m/uL (3.80-5.40); RDW 15.5 % (11.5-15.5); WBC 11.2 k/uL (3.8-10.6)
[2018-08-05] MEDS: HEPARIN SOD,PORK IN 0.45% NACL 25,000 UNIT in 0.45% NACL 1 250ML.BAG IV SCH (14:05)
[2018-08-05] MEDS: amLODIPine 5 MG TAB PO SCH (16:08)
[2018-08-05 16:40] LABS: Glucose,Whole Blood 118 mg/dL (75-99)
--- NOTE | 2018-08-05 17:03 | CONS ---
CONSULTATION DATE OF SERVICE: Eli Barrera is a 77-year-old lady, a smoker with COPD, who sees Dr. Connell as her primary care physician. She also has seen Dr. Campos in the past. She came into the hospital with basically complaints of increasing shortness of breath. She was found to have an elevated D-dimer and a CT angiography was performed which did not reveal any evidence of pulmonary embolism. Her primary care physician saw her and, because of progressive wheezing and shortness of breath, she was sent here to the hospital. She also complained of some cough. Apparently for the last 2 weeks she has been having cough with expectoration, has been on antibiotics without improvement. It appears that she has had recurrent bronchitis and URI-type symptoms. After she coughed, she had some sharp chest pain. In view of her shortness of breath and sharp chest pain, I was asked to see her to rule out any concomitant heart failure or CAD. On questioning, patient's activity is limited. She does not have any symptoms of angina. She did not have any recent stress testing. She has multiple comorbid conditions in the form of hypertension, osteoarthritis, hyperlipidemia, previous joint replacements. However, there is no documented evidence of coronary artery disease. MEDICATIONS: Medications at home include: 1. Zyrtec. 2. Flonase inhaler. 3. Prilosec. 4. Benadryl. 5. Wellbutrin. ALLERGIES: NONE. SOCIAL HISTORY: The patient has not smoked and does not take any alcohol on a regular basis. PHYSICAL EXAMINATION: On examination, blood pressure is 148/78. Pulse rate is 67 per minute, regular. HEENT: Unremarkable. Fundus was not examined by me. Neck is supple. There is no JVD. I do not hear a carotid bruit. Heart exam reveals S1, S2 heard normally. There is a short systolic murmur at the base. Second heart sound is preserved. Lungs reveal decent air entry with some scattered rhonchi. Abdomen is soft, nontender. Lower extremities reveal diminished pulses. No edema. Central nervous system is normal. EKG reveals sinus mechanism, right bundle branch block pattern with repolarization abnormality. LABORATORY DATA: Laboratory data revealed unremarkable troponins. BNP is normal. IMPRESSION: 1. Probable acute bronchitis. 2. Abnormal D-dimer with negative CT angiography for pulmonary embolism. 3. No evidence to suggest any ongoing myocardial ischemia or heart failure clinically. RECOMMENDATIONS: I would recommend that we obtain echocardiogram to assess LV function. I will also recommend a pulmonary evaluation for probable underlying bronchial asthma. When patient's respiratory status is much improved and better, we will consider a stress test as an outpatient. I will see her as needed from a cardiac standpoint. Thank you very much for the consult. ARLENE / JOYA: [id number] /
[2018-08-05] MEDS: ALPRAZolam 0.25 MG TAB PO SCH (21:53)
[2018-08-05] MEDS: PRAVASTATIN SODIUM 20 MG TAB PO SCH (21:53)
[2018-08-06] MEDS: HEPARIN SOD,PORK IN 0.45% NACL 25,000 UNIT in 0.45% NACL 1 250ML.BAG IV SCH ×3 (04:17→22:11)
[2018-08-06 06:31] LABS: Basophils % (A) 0 %; Eosinophils # (A) 0.1 k/uL (0-0.7); Eosinophils % (A) 1 %; HCT 46.3 % (34.0-46.0); HGB 14.7 gm/dL (11.4-16.0); Lymphocytes # (A) 2.1 k/uL (1.0-4.8); Lymphocytes % (A) 18 %; MCH 25.7 pg (25.0-35.0); MCHC 31.7 g/dL (31.0-37.0); MCV 81.1 fL (80.0-100.0); Mean Platelet Volume 6.2; Monocytes # (A) 0.5 k/uL (0-1.0); Monocytes % (A) 5 %; Neutrophils # (A) 8.8 k/uL (1.3-7.7); Neutrophils % (A) 75 %; Platelet Count 219 k/uL (150-450); RBC 5.71 m/uL (3.80-5.40); RDW 15.1 % (11.5-15.5); WBC 11.8 k/uL (3.8-10.6)
[2018-08-06 06:51] LABS: ALT 55 U/L (9-52); AST 25 U/L (14-36); Albumin 3.8 g/dL (3.5-5.0); Alkaline Phosphatase 106 U/L (38-126); Anion Gap 8 mmol/L; Blood Urea Nitrogen 21 mg/dL (7-17); Calcium 8.9 mg/dL (8.4-10.2); Carbon Dioxide 25 mmol/L (22-30); Chloride 105 mmol/L (98-107); Glucose 101 mg/dL (74-99); Sodium 138 mmol/L (137-145); Total Bilirubin 0.7 mg/dL (0.2-1.3); Total Protein 6.3 g/dL (6.3-8.2)
[2018-08-06] MEDS ORDERED: ENOXAPARIN 40 MG/0.4 ML SYRINGE SQ SCH (09:00)
[2018-08-06] MEDS ORDERED: AZITHROMYCIN 500 MG in SODIUM CHLORIDE 0.9% 250 ML IVPB SCH (09:00)
--- NOTE | 2018-08-06 09:06 | PN ---
PROGRESS NOTE This is a 77-year-old lady who is admitted to the hospital with shortness of breath, cough and wheeze and being evaluated by Access Services Assistant. Her workup has showed DVT involving the femoral vein. She is currently on IV heparin. Cardiac-gonzalez, she is doing well, stable and is free of symptoms. Had an echocardiogram yesterday that showed normal LV systolic function. PHYSICAL EXAMINATION: On exam, comfortable at rest. Blood pressure is elevated at 160/90, but previously the blood pressure was normal. Chest exam reveals occasional rhonchi bilaterally. Heart exam reveals first and second heart sounds. No gallop. Exam of extremities did not reveal any edema. Peripheral pulses are palpable. ASSESSMENT: We will add amlodipine for better blood pressure control. No further cardiac input. We will see the patient on an as-needed basis. She is on heparin and switch her to Xarelto or Eliquis. MMODL / IJN: [id number] /
[2018-08-06] MEDS: ASPIRIN 325 MG TAB PO SCH (09:19)
[2018-08-06] MEDS: predniSONE 10 MG TAB PO SCH (09:19)
[2018-08-06] MEDS: buPROPion XL 150 MG TAB.ER.24H PO SCH ×2 (09:20→19:59)
[2018-08-06] MEDS: cycloSPORINE 0.05% OPHTH 0.4 ML DROPERETTE BOTH EYES SCH ×2 (09:20→19:59)
[2018-08-06] MEDS: amLODIPine 5 MG TAB PO SCH (09:20)
[2018-08-06] MEDS: MISOPROSTOL PO SCH ×2 (09:29→21:12)
[2018-08-06] MEDS: DICLOFENAC SODIUM PO SCH ×2 (09:29→21:12)
--- NOTE | 2018-08-06 11:22 | P.PN ---
Subjective Progress Note Date: 08/06/18 08/06/2017: Patient seen and examined covering for Dr. Connell. The patient was diagnosed with lower extremity DVT. She is also found to have sinusitis. The patient is sitting in bed on room air. She does complain of intermittent chest pain. She denies cough, shortness of breath. The patient's daughter is at bedside. They are aware that her insurance will not cover Eliquis for Xarelto. The patient will be bridged to Coumadin. Continue heparin drip for now. Objective - Vital Signs Vital signs: Vital Signs Temp 98.0 F 08/06/18 08:00 Pulse 80 08/06/18 08:00 Resp 16 08/06/18 08:00 BP 161/92 08/06/18 08:00 Pulse Ox 95 08/06/18 08:00 Intake & Output 08/05/18 08/06/18 08/06/18 18:59 06:59 18:59 Intake Total 440 276.869 Balance 440 276.869 Intake: Intake, IV Titration 276.869 Amount Heparin Sod,Pork in 0.45% 276.869 NaCl 25,000 unit In 0.45 % NaCl 1 250ml.bag @ 18 UNITS/KG/HR 17.962 mls/hr IV .[id number] [facility] Rx#: [id number] Oral 440 Other: Voiding Method Toilet # Voids 1 1 - Exam Gen.: Patient is alert and oriented 3, no acute distress Cardiovascular: Regular rate and rhythm, S1/S2 Lungs: Clear to auscultation bilaterally no wheezes rales or rhonchi Abdomen: Soft nontender nondistended positive bowel sounds Extremities: Trace edema - Labs CBC & Chem 7: 08/06/18 05:55 08/06/18 05:55 Labs: Abnormal Lab Results - Last 24 Hours (Table) 08/05/18 08/05/18 08/05/18 Range/Units 13:14 16:08 20:59 WBC 11.2 H (3.8-10.6) k/uL RBC (3.80-5.40) m/uL Hct (34.0-46.0) % Neutrophils # 9.0 H (1.3-7.7) k/uL APTT 141.8 H* (22.0-30.0) sec BUN (7-17) mg/dL Glucose (74-99) mg/dL POC Glucose (mg/dL) 118 H (75-99) mg/dL ALT (9-52) U/L 08/06/18 08/06/18 08/06/18 Range/Units 05:55 05:55 05:55 WBC 11.8 H (3.8-10.6) k/uL RBC 5.71 H (3.80-5.40) m/uL Hct 46.3 H (34.0-46.0) % Neutrophils # 8.8 H (1.3-7.7) k/uL APTT 85.3 H (22.0-30.0) sec BUN 21 H (7-17) mg/dL Glucose 101 H (74-99) mg/dL POC Glucose (mg/dL) (75-99) mg/dL ALT 55 H (9-52) U/L Microbiology - Last 24 Hours (Table) 08/04/18 17:45 Urine Culture - Preliminary Urine,Voided Assessment and Plan Assessment: 1. Increased shortness of breath activity. Chest x-ray negative for acute pulmonary process. CTA negative for PE. Troponins negative 3 BNP 288. 2-D echo has been reviewed. cardiology and pulmonary service is consulted. 2. Right Lower extremity non-occluding DVT - patient's insurance does not cover Eliquis or Xarelto, Patient will be started on Coumadin 3. Urinary tract infection. UA showing small amount of leukocyte Estrace. Urine culture ordered. Patient currently on Rocephin. White blood cell elevated at 11.2 4. History of eye disorder 5. History of GERD 6. History of hyperlipidemia 7. History of essential hypertension - cardiology has added amlodipine for blood pressure control 8. History of osteoarthritis 9. Sinusitis - continue azithromycin GI prophylaxis Protonix. Cardiology and pulmonary service is consulted. Patient seen and examined covering for Dr. Connell, patient will be bridged to coumadin
[2018-08-06] MEDS: WARFARIN 5 MG TAB PO SCH (17:07)
[2018-08-06] MEDS: PRAVASTATIN SODIUM 20 MG TAB PO SCH (20:00)
[2018-08-06] MEDS: SODIUM CHLORIDE 0.9% 1,000 ML IV SCH (22:12)
[2018-08-07] MEDS: ALPRAZolam 0.25 MG TAB PO SCH ×2 (01:14→21:27)
[2018-08-07] MEDS: predniSONE 10 MG TAB PO SCH (07:25)
[2018-08-07] MEDS: buPROPion XL 150 MG TAB.ER.24H PO SCH ×2 (07:25→21:27)
[2018-08-07] MEDS: ASPIRIN 325 MG TAB PO SCH (07:25)
[2018-08-07] MEDS: amLODIPine 5 MG TAB PO SCH (07:25)
[2018-08-07] MEDS: MISOPROSTOL PO SCH ×2 (07:26→21:20)
[2018-08-07] MEDS: DICLOFENAC SODIUM PO SCH ×2 (07:26→21:20)
[2018-08-07] MEDS: AZITHROMYCIN 500 MG TAB PO SCH (07:26)
[2018-08-07] MEDS: cycloSPORINE 0.05% OPHTH 0.4 ML DROPERETTE BOTH EYES SCH ×2 (07:28→22:45)
[2018-08-07 08:36] LABS: Basophils % (A) 0 %; Eosinophils # (A) 0.2 k/uL (0-0.7); Eosinophils % (A) 2 %; HCT 45.2 % (34.0-46.0); HGB 13.9 gm/dL (11.4-16.0); Lymphocytes # (A) 2.2 k/uL (1.0-4.8); Lymphocytes % (A) 21 %; MCH 24.9 pg (25.0-35.0); MCHC 30.9 g/dL (31.0-37.0); MCV 80.6 fL (80.0-100.0); Mean Platelet Volume 6.6; Monocytes # (A) 0.4 k/uL (0-1.0); Monocytes % (A) 3 %; Neutrophils # (A) 7.6 k/uL (1.3-7.7); Neutrophils % (A) 73 %; Platelet Count 244 k/uL (150-450); RDW 15.4 % (11.5-15.5); WBC 10.5 k/uL (3.8-10.6)
[2018-08-07 09:01] LABS: ALT 47 U/L (9-52); AST 21 U/L (14-36); Albumin 3.5 g/dL (3.5-5.0); Alkaline Phosphatase 87 U/L (38-126); Anion Gap 8 mmol/L; Blood Urea Nitrogen 21 mg/dL (7-17); Calcium 8.8 mg/dL (8.4-10.2); Carbon Dioxide 24 mmol/L (22-30); Chloride 105 mmol/L (98-107); Glucose 116 mg/dL (74-99); Sodium 137 mmol/L (137-145); Total Bilirubin 0.6 mg/dL (0.2-1.3); Total Protein 5.8 g/dL (6.3-8.2)
[2018-08-07 09:08] LABS: INR 0.9 (<1.2); Prothrombin Time 10.2 sec (9.0-12.0)
[2018-08-07] MEDS: WARFARIN 5 MG TAB PO SCH (17:29)
--- NOTE | 2018-08-07 18:35 | PN ---
PROGRESS NOTE DATE OF SERVICE: August 07, 2018. She is less short of breath. She has less congestion in her sinuses and in her head. On physical examination, respiratory rate is 16, pulse rate of 76, temperature 97.7, blood pressure 115/62. HEENT is unremarkable. Chest is clear. Cardiovascular system is S1, S2. Abdomen is soft. There is no edema. White count is 10.5, hemoglobin 13.9, sodium 137, potassium 4, chloride 105, bicarb 24, BUN 21, creatinine 0.59. IMPRESSION: At this time is: 1. Right lower extremity deep vein thrombosis. 2. Urinary tract infection. 3. Sinusitis. 4. Doubt pulmonary embolism. 5. Hypertension. Continue current medications. Optimize anticoagulation with Coumadin. Increase activity level. The patient is counseled regarding her condition and this approach. MMODL / IJN: [id number] /
[2018-08-07] MEDS: SODIUM CHLORIDE 0.9% 1,000 ML IV SCH (21:20)
[2018-08-07] MEDS: PRAVASTATIN SODIUM 20 MG TAB PO SCH (21:28)
[2018-08-07] MEDS: HEPARIN SOD,PORK IN 0.45% NACL 25,000 UNIT in 0.45% NACL 1 250ML.BAG IV SCH (21:29)
[2018-08-08] MEDS: ASPIRIN 325 MG TAB PO SCH (07:36)
[2018-08-08] MEDS: buPROPion XL 150 MG TAB.ER.24H PO SCH ×2 (07:36→20:36)
[2018-08-08] MEDS: amLODIPine 5 MG TAB PO SCH (07:37)
[2018-08-08] MEDS: predniSONE 10 MG TAB PO SCH (07:37)
[2018-08-08] MEDS: AZITHROMYCIN 500 MG TAB PO SCH (07:38)
[2018-08-08] MEDS: cycloSPORINE 0.05% OPHTH 0.4 ML DROPERETTE BOTH EYES SCH ×2 (07:39→20:36)
[2018-08-08] MEDS: MISOPROSTOL PO SCH ×2 (07:40→20:50)
[2018-08-08] MEDS: DICLOFENAC SODIUM PO SCH ×2 (07:40→20:50)
[2018-08-08 08:23] LABS: Basophils % (A) 0 %; Eosinophils # (A) 0.2 k/uL (0-0.7); Eosinophils % (A) 2 %; HCT 45.8 % (34.0-46.0); HGB 14.3 gm/dL (11.4-16.0); Lymphocytes # (A) 2.3 k/uL (1.0-4.8); Lymphocytes % (A) 24 %; MCH 25.5 pg (25.0-35.0); MCHC 31.1 g/dL (31.0-37.0); MCV 81.8 fL (80.0-100.0); Mean Platelet Volume 6.3; Monocytes # (A) 0.5 k/uL (0-1.0); Monocytes % (A) 5 %; Neutrophils # (A) 6.4 k/uL (1.3-7.7); Neutrophils % (A) 66 %; Platelet Count 235 k/uL (150-450); RDW 15.5 % (11.5-15.5); WBC 9.6 k/uL (3.8-10.6)
[2018-08-08 08:29] LABS: Partial Thromboplastin Time 54.4 sec (22.0-30.0); Prothrombin Time 10.8 sec (9.0-12.0)
[2018-08-08 08:33] LABS: ALT 50 U/L (9-52); AST 30 U/L (14-36); Albumin 3.7 g/dL (3.5-5.0); Alkaline Phosphatase 85 U/L (38-126); Anion Gap 7 mmol/L; Blood Urea Nitrogen 22 mg/dL (7-17); Calcium 9.1 mg/dL (8.4-10.2); Carbon Dioxide 26 mmol/L (22-30); Chloride 106 mmol/L (98-107); Glucose 84 mg/dL (74-99); Potassium 4.2 mmol/L (3.5-5.1); Sodium 139 mmol/L (137-145); Total Bilirubin 0.6 mg/dL (0.2-1.3); Total Protein 6.1 g/dL (6.3-8.2)
--- NOTE | 2018-08-08 12:27 | P.PN ---
Subjective Progress Note Date: 08/08/18 This is a 77-year-old female patient of Dr. Farris. Patient presented with complaints of increased shortness of breath with activity. Patient states that over the past month she has had upper respiratory symptoms including cough and congestion which she was treated outpatient with steroids, antibiotics and breathing treatments. Patient reports that she has increased shortness of breath with activity. Patient is still having occasional cough. And having some increased swelling to lower extremities. Patient does have a past medical history of eye disorder, GERD, hyperlipidemia, hypertension, osteoarthritis and bilateral knee replacements. Patient denies nicotine dependence. Chest x-ray completed showing no evidence for acute pulmonary disease. D-dimer elevated at 2.25. Chest CTA completed showing no evidence of pulmonary embolism. Mild cardiomegaly. Submental atelectasis or scarring in the left lower lobe. Troponins negative 3. BNP 288. Cardiology and pulmonary services have been consulted. At this time patient is complaining of some shortness breath with exertion. Patient denies nausea vomiting or diarrhea. Patient denies chest pain. Patient denies any urinary burning or frequency. UA showing small amount of leukocyte Estrace. Urine culture ordered. Patient white blood cell elevated at 11.8. Patient started on Rocephin. 08/06/2017: Patient seen and examined covering for Dr. Connell. The patient was diagnosed with lower extremity DVT. She is also found to have sinusitis. The patient is sitting in bed on room air. She does complain of intermittent chest pain. She denies cough, shortness of breath. The patient's daughter is at bedside. They are aware that her insurance will not cover Eliquis for Xarelto. The patient will be bridged to Coumadin. Continue heparin drip for now. 08/08/2018 patient being treated for an acute sinusitis. Also a right leg DVT. Remains on heparin drip for bridging. She's receiving Coumadin 10 mg tonight INR 1.0 still complaining of some sinus pressure congestion. Shortness of breath resolved. Mucinex at. Objective - Vital Signs Vital signs: Vital Signs Temp 98.4 F 08/08/18 12:11 Pulse 80 08/08/18 12:11 Resp 16 08/08/18 12:11 BP 137/73 08/08/18 12:11 Pulse Ox 94 L 08/08/18 12:11 Intake & Output 08/07/18 08/08/18 08/08/18 18:59 06:59 18:59 Intake Total 250.577 855 8639 Balance 250.442 050 2996 Intake: Intake, IV Titration 250.000 320 290 Amount Heparin Sod,Pork in 0.45% 250.000 NaCl 25,000 unit In 0.45 % NaCl 1 250ml.bag @ 18 UNITS/KG/HR 17.962 mls/hr IV .[id number] [facility] Rx#: [id number] Sodium Chloride 0.9% 1, 320 240 000 ml @ 20 mls/hr IV . Q24H [facility] Rx#:[id number] cefTRIAXone 1 gm In 50 Sodium Chloride 0.9% 50 ml @ 100 mls/hr IVPB Q24HR [facility] Rx#:[id number] Oral 1580 Other: Voiding Method Toilet Toilet Toilet # Voids 3 1 3 - Exam Head normocephalic Neck supple Lungs clear to auscultation bilaterally no wheezing or crackles Heart regular rate and rhythm S1-S2, no rub or gallop Abdomen is soft nontender nondistended positive bowel sounds no hepatosplenomegaly Extremities no edema Neuro alert and orientated to 3 - Labs CBC & Chem 7: 08/08/18 07:41 08/08/18 07:41 Labs: Abnormal Lab Results - Last 24 Hours (Table) 08/08/18 08/08/18 08/08/18 Range/Units 07:41 07:41 07:41 RBC 5.60 H (3.80-5.40) m/uL APTT 54.4 H (22.0-30.0) sec BUN 22 H (7-17) mg/dL Total Protein 6.1 L (6.3-8.2) g/dL Assessment and Plan Assessment: 1. Increased shortness of breath activity. Per pulmonary service symptoms likely related to sinus infection. Chest x-ray negative for acute pulmonary process. CTA negative for PE. Troponins negative 3 BNP 288. 2-D echo has beba smith reviewed. Patient seen by cardiology and pulmonary service 2. Right Lower extremity non-occluding DVT - patient's insurance does not cover Eliquis or Xarelto, continue Coumadin pharmacy dosing. Bridging with IV heparin. 3. Urinary tract infection. UA showing small amount of leukocyte Estrace. Urine culture negative. Patient currently on Rocephin. White blood cell elevated at 11.2 4. History of eye disorder 5. History of GERD 6. History of hyperlipidemia 7. History of essential hypertension - cardiology has added amlodipine for blood pressure control 8. History of osteoarthritis 9. Acute Sinusitis - continue azithromycin. Continue nasal spray. Add Mucinex GI prophylaxis Protonix. Awaiting INR to be therapeutic I performed an examination of the patient and discussed their management with the physician Electric Well Logging Operator. I have reviewed the Physician Electric Well Logging Operator's notes and agree with the documented findings and plan of care
[2018-08-08] MEDS: HEPARIN SOD,PORK IN 0.45% NACL 25,000 UNIT in 0.45% NACL 1 250ML.BAG IV SCH (12:47)
[2018-08-08] MEDS ORDERED: WARFARIN 10 MG TAB PO ONE (18:00)
[2018-08-08] MEDS: ALPRAZolam 0.25 MG TAB PO SCH (20:36)
[2018-08-08] MEDS: PRAVASTATIN SODIUM 20 MG TAB PO SCH (20:36)
[2018-08-08] MEDS: SODIUM CHLORIDE 0.9% 1,000 ML IV SCH (20:46)
[2018-08-08] MEDS: guaiFENesin 600 MG TABLET.ER PO SCH (20:50)
[2018-08-09 08:11] LABS: Anisocytosis Slight; Basophils % (A) 0 %; Eosinophils # (A) 0.2 k/uL (0-0.7); Eosinophils % (A) 2 %; HGB 13.5 gm/dL (11.4-16.0); Lymphocytes # (A) 2.5 k/uL (1.0-4.8); Lymphocytes % (A) 25 %; MCH 25.6 pg (25.0-35.0); MCHC 31.4 g/dL (31.0-37.0); MCV 81.5 fL (80.0-100.0); Mean Platelet Volume 6.8; Monocytes # (A) 0.6 k/uL (0-1.0); Monocytes % (A) 6 %; Neutrophils # (A) 6.6 k/uL (1.3-7.7); Neutrophils % (A) 66 %; Platelet Count 229 k/uL (150-450); RBC 5.28 m/uL (3.80-5.40); RDW 16.1 % (11.5-15.5); WBC 10.1 k/uL (3.8-10.6)
[2018-08-09 08:22] LABS: INR 1.8 (<1.2); Prothrombin Time 17.7 sec (9.0-12.0)
[2018-08-09 08:30] LABS: Partial Thromboplastin Time 105.2 sec (22.0-30.0)
[2018-08-09] MEDS: ASPIRIN 325 MG TAB PO SCH (08:35)
[2018-08-09] MEDS: amLODIPine 5 MG TAB PO SCH (08:35)
[2018-08-09] MEDS: guaiFENesin 600 MG TABLET.ER PO SCH ×2 (08:35→21:00)
[2018-08-09] MEDS: predniSONE 10 MG TAB PO SCH (08:35)
[2018-08-09] MEDS: cycloSPORINE 0.05% OPHTH 0.4 ML DROPERETTE BOTH EYES SCH ×2 (08:37→21:00)
[2018-08-09] MEDS: AZITHROMYCIN 500 MG TAB PO SCH (08:37)
[2018-08-09] MEDS: buPROPion XL 150 MG TAB.ER.24H PO SCH ×2 (08:37→20:59)
[2018-08-09] MEDS: HEPARIN SOD,PORK IN 0.45% NACL 25,000 UNIT in 0.45% NACL 1 250ML.BAG IV SCH ×2 (08:44→16:30)
[2018-08-09] MEDS: DICLOFENAC SODIUM PO SCH ×2 (09:09→21:09)
[2018-08-09] MEDS: MISOPROSTOL PO SCH ×2 (09:09→21:09)
[2018-08-09 09:28] LABS: ALT 53 U/L (9-52); AST 31 U/L (14-36); Albumin 3.5 g/dL (3.5-5.0); Alkaline Phosphatase 78 U/L (38-126); Anion Gap 7 mmol/L; Blood Urea Nitrogen 22 mg/dL (7-17); Calcium 9.2 mg/dL (8.4-10.2); Carbon Dioxide 22 mmol/L (22-30); Chloride 109 mmol/L (98-107); Glucose 88 mg/dL (74-99); Potassium 4.4 mmol/L (3.5-5.1); Sodium 138 mmol/L (137-145); Total Bilirubin 0.4 mg/dL (0.2-1.3); Total Protein 5.7 g/dL (6.3-8.2)
--- NOTE | 2018-08-09 11:37 | P.PN ---
Subjective Progress Note Date: 08/09/18 This is a 77-year-old female patient of Dr. Farris. Patient presented with complaints of increased shortness of breath with activity. Patient states that over the past month she has had upper respiratory symptoms including cough and congestion which she was treated outpatient with steroids, antibiotics and breathing treatments. Patient reports that she has increased shortness of breath with activity. Patient is still having occasional cough. And having some increased swelling to lower extremities. Patient does have a past medical history of eye disorder, GERD, hyperlipidemia, hypertension, osteoarthritis and bilateral knee replacements. Patient denies nicotine dependence. Chest x-ray completed showing no evidence for acute pulmonary disease. D-dimer elevated at 2.25. Chest CTA completed showing no evidence of pulmonary embolism. Mild cardiomegaly. Submental atelectasis or scarring in the left lower lobe. Troponins negative 3. BNP 288. Cardiology and pulmonary services have been consulted. At this time patient is complaining of some shortness breath with exertion. Patient denies nausea vomiting or diarrhea. Patient denies chest pain. Patient denies any urinary burning or frequency. UA showing small amount of leukocyte Estrace. Urine culture ordered. Patient white blood cell elevated at 11.8. Patient started on Rocephin. 08/06/2017: Patient seen and examined covering for Dr. Connell. The patient was diagnosed with lower extremity DVT. She is also found to have sinusitis. The patient is sitting in bed on room air. She does complain of intermittent chest pain. She denies cough, shortness of breath. The patient's daughter is at bedside. They are aware that her insurance will not cover Eliquis for Xarelto. The patient will be bridged to Coumadin. Continue heparin drip for now. 08/08/2018 patient being treated for an acute sinusitis. Also a right leg DVT. Remains on heparin drip for bridging. She's receiving Coumadin 10 mg tonight INR 1.0 still complaining of some sinus pressure congestion. Shortness of breath resolved. Mucinex at. On 08/09/2018 patient is alert and oriented 3. Patient currently on heparin drip and Coumadin. INR today 1.8. Patient will get 7.5 mg of Coumadin tonight. Patient will be DC'd home on Coumadin with therapeutic. Patient reports improvement with her acute sinusitis. Patient remains on IV antibiotics at this time. Objective - Vital Signs Vital signs: Vital Signs Temp 98.2 F 08/09/18 04:57 Pulse 65 08/09/18 04:57 Resp 16 08/09/18 04:57 BP 136/87 08/09/18 04:57 Pulse Ox 97 08/09/18 04:57 Intake & Output 08/08/18 08/09/18 08/09/18 18:59 06:59 18:59 Intake Total 2068.487 590 250.216 Balance 2068.487 590 250.216 Intake: Intake, IV Titration 488.487 250.216 Amount Heparin Sod,Pork in 0.45% 198.487 250.216 NaCl 25,000 unit In 0.45 % NaCl 1 250ml.bag @ 18 UNITS/KG/HR 17.962 mls/hr IV .[id number] [facility] Rx#: [id number] Sodium Chloride 0.9% 1, 240 000 ml @ 20 mls/hr IV . Q24H [facility] Rx#:[id number] cefTRIAXone 1 gm In 50 Sodium Chloride 0.9% 50 ml @ 100 mls/hr IVPB Q24HR [facility] Rx#:[id number] Oral 1580 590 Other: Voiding Method Toilet Toilet # Voids 3 2 - Exam Head normocephalic Neck supple Lungs clear to auscultation bilaterally no wheezing or crackles Heart regular rate and rhythm S1-S2, no rub or gallop Abdomen is soft nontender nondistended positive bowel sounds no hepatosplenomegaly Extremities no edema Neuro alert and orientated to 3 - Labs CBC & Chem 7: 08/09/18 07:40 08/09/18 07:40 Labs: Abnormal Lab Results - Last 24 Hours (Table) 08/09/18 08/09/18 08/09/18 Range/Units 07:40 07:40 07:40 RDW 16.1 H (11.5-15.5) % PT 17.7 H (9.0-12.0) sec INR 1.8 H (<1.2) APTT 105.2 H* (22.0-30.0) sec Chloride 109 H (98-107) mmol/L BUN 22 H (7-17) mg/dL ALT 53 H (9-52) U/L Total Protein 5.7 L (6.3-8.2) g/dL Assessment and Plan Assessment: 1. Increased shortness of breath activity. Chest x-ray negative for acute pul monary process. CTA negative for PE. Troponins negative 3 BNP 288. 2D echo has been reviewed. Patient seen by cardiology and pulmonary services 2. Right lower extremity nonoccluding DVT. Patient's insurance does not cover eliquis is her also. Pharmacy dosing Coumadin. Patient currently on heparin drip during bridging. INR today 1.8 patient will receive 7.5 mg of Coumadin tonight 3. Urinary tract infection. UA showing small amount of leukocyte Estrace. Urine culture ordered. Patient currently on Rocephin. White blood cell elevated at 11.2 4. History of eye disorder 5. History of GERD 6. History of hyperlipidemia 7. History of essential hypertension 8. History of osteoarthritis 9. Acute sinusitis. Continue azithromycin and Rocephin. Continue nasal spray. Mucinex added. Patient to follow-up with ENT outpatient DVT prophylaxis heparin and Coumadin. GI prophylaxis Protonix patient will be DC'd on Coumadin with therapeutic. Patient has been educated on management she will need a lot Coumadin along with certain foods to avoid I performed an examination of the patient and discussed their management with the Nurse Practitioner. I have reviewed the Nurse Practitioner's notes and agree with the documented findings and plan of care
[2018-08-09] MEDS ORDERED: WARFARIN 7.5 MG TAB PO ONE (18:00)
[2018-08-09] MEDS: PRAVASTATIN SODIUM 20 MG TAB PO SCH (20:59)
[2018-08-09] MEDS: ALPRAZolam 0.25 MG TAB PO SCH (21:00)
[2018-08-09] MEDS: SODIUM CHLORIDE 0.9% 1,000 ML IV SCH (21:09)
[2018-08-09] MEDS ORDERED: DICLOFENAC SODIUM PO PRN (21:44)
[2018-08-09] MEDS ORDERED: MISOPROSTOL PO PRN (21:44)
[2018-08-10] MEDS: HEPARIN SOD,PORK IN 0.45% NACL 25,000 UNIT in 0.45% NACL 1 250ML.BAG IV SCH (03:37)
[2018-08-10 05:16] VITALS: BP 149/83; PULSE 76; TEMP 97.9
[2018-08-10] MEDS: ASPIRIN 325 MG TAB PO SCH (08:00)
[2018-08-10] MEDS: guaiFENesin 600 MG TABLET.ER PO SCH (08:00)
[2018-08-10] MEDS: predniSONE 10 MG TAB PO SCH (08:00)
[2018-08-10] MEDS: buPROPion XL 150 MG TAB.ER.24H PO SCH (08:01)
[2018-08-10] MEDS: amLODIPine 5 MG TAB PO SCH (08:01)
[2018-08-10 08:02] LABS: Anisocytosis Slight; Basophils % (A) 0 %; Eosinophils # (A) 0.1 k/uL (0-0.7); Eosinophils % (A) 1 %; HCT 42.5 % (34.0-46.0); HGB 13.3 gm/dL (11.4-16.0); Lymphocytes # (A) 2.2 k/uL (1.0-4.8); Lymphocytes % (A) 22 %; MCH 25.6 pg (25.0-35.0); MCHC 31.3 g/dL (31.0-37.0); MCV 81.8 fL (80.0-100.0); Mean Platelet Volume 6.6; Monocytes # (A) 0.6 k/uL (0-1.0); Monocytes % (A) 6 %; Neutrophils # (A) 6.8 k/uL (1.3-7.7); Neutrophils % (A) 69 %; Platelet Count 236 k/uL (150-450); RDW 16.2 % (11.5-15.5); WBC 9.9 k/uL (3.8-10.6)
[2018-08-10] MEDS: cycloSPORINE 0.05% OPHTH 0.4 ML DROPERETTE BOTH EYES SCH (08:02)
[2018-08-10] MEDS: AZITHROMYCIN 500 MG TAB PO SCH (08:02)
[2018-08-10 08:03] LABS: Partial Thromboplastin Time 63.5 sec (22.0-30.0); Prothrombin Time 28.8 sec (9.0-12.0)
[2018-08-10 08:14] VITALS: RESP 17
--- NOTE | 2018-08-10 10:37 | P.DS ---
Providers Date of admission: 08/05/18 13:32 Expected date of discharge: 08/10/18 Attending physician: Douglas Connell Consults: 08/04/18 20:14 Consult Physician Routine Consulting Provider: Sam Mead Consult Reason/Comments: shortness of breath Do you want consulting provider notified?: Yes, Notify in am 08/05/18 07:39 Consult Physician Routine Consulting Provider: Tee Campos Consult Reason/Comments: SOB Do you want consulting provider notified?: Yes Primary care physician: Tressa Farris Hospital Course: Discharge Diagnosis 1. Increased shortness of breath activity. Chest x-ray negative for acute pulmonary process. CTA negative for PE. Troponins negative 3 BNP 288. 2D echo has been reviewed. Patient seen by cardiology and pulmonary services 2. Right lower extremity nonoccluding DVT. Patient's insurance does not cover eliquis is her also. Pharmacy dosing Coumadin. Patient currently on heparin drip during bridging. INR today 1.8 patient will receive 7.5 mg of Coumadin tonight. Patient's INR 3.0. Patient will be discharged home on 5 mg Coumadin. patient educated at length about the importance of avoiding green vegetables and close monitoring. Patient also to follow-up with Dr. farris for further management of her PT/INR. Repeat PT/INR ordered for 2 days 3. Urinary tract infection. UA showing small amount of leukocyte Estrace. urine culture negative. 4. History of eye disorder 5. History of GERD 6. History of hyperlipidemia 7. History of essential hypertension 8. History of osteoarthritis 9. Acute sinusitis. Continue azithromycin and Rocephin. Continue nasal spray. Mucinex added. Patient to follow-up with ENT outpatient. patient will be discharged on Augmentin for 7 more days and prednisone taper Hospital course This is a 77-year-old female patient of Dr. Farris. Patient presented with complaints of increased shortness of breath with activity. Patient states that over the past month she has had upper respiratory symptoms including cough and congestion which she was treated outpatient with steroids, antibiotics and breathing treatments. Patient reports that she has increased shortness of breath with activity. Patient is still having occasional cough. And having some increased swelling to lower extremities. Patient does have a past medical history of eye disorder, GERD, hyperlipidemia, hypertension, osteoarthritis and bilateral knee replacements. Patient denies nicotine dependence. Chest x-ray completed showing no evidence for acute pulmonary disease. D-dimer elevated at 2.25. Chest CTA completed showing no evidence of pulmonary embolism. Mild cardiomegaly. Submental atelectasis or scarring in the left lower lobe. Tro ponins negative 3. BNP 288. Cardiology and pulmonary services have been consulted. At this time patient is complaining of some shortness breath with exertion. Patient denies nausea vomiting or diarrhea. Patient denies chest pain. Patient denies any urinary burning or frequency. UA showing small amount of leukocyte Estrace. Urine culture ordered. Patient white blood cell elevated at 11.8. Patient started on Rocephin. 08/06/2017: Patient seen and examined covering for Dr. Connell. The patient was diagnosed with lower extremity DVT. She is also found to have sinusitis. The patient is sitting in bed on room air. She does complain of intermittent chest pain. She denies cough, shortness of breath. The patient's daughter is at bedside. They are aware that her insurance will not cover Eliquis for Xarelto. The patient will be bridged to Coumadin. Continue heparin drip for now. 08/08/2018 patient being treated for an acute sinusitis. Also a right leg DVT. Remains on heparin drip for bridging. She's receiving Coumadin 10 mg tonight INR 1.0 still complaining of some sinus pressure congestion. Shortness of breath resolved. Mucinex at. On 08/09/2018 patient is alert and oriented 3. Patient currently on heparin drip and Coumadin. INR today 1.8. Patient will get 7.5 mg of Coumadin tonight. Patient will be DC'd home on Coumadin with therapeutic. Patient reports improvement with her acute sinusitis. Patient remains on IV antibiotics at this time. On 08/10/2018 patient is alert and oriented 3. Patient stresses that she is very eager to go home. INR today 3.0. Patient will be discharged home on 5 mg of Coumadin. Patient educated at length about the importance of close monitoring along with diet modification. Patient also educated on potential side effects to watch out for. Patient to follow-up with PCP. Repeat PT/INR ordered for 2 days. Patient will be discharged on Augmentin and prednisone taper for acute sinusitis. Patient also advised to follow-up with her primary care provider and for the follow-up with ENT for chronic sinusitis. Patient denies chest pain or shortness breath. Patient denies nausea vomiting or diarrhea. Patient denies any urinary burning or frequency I performed an examination of the patient and discussed their management with the Nurse Practitioner. I have reviewed the Nurse Practitioner's notes and agree with the documented findings and plan of care Patient Condition at Discharge: Stable Plan - Discharge Summary New Discharge Prescriptions: New amLODIPine [Norvasc] 5 mg PO DAILY 30 Days #30 tab Amoxicillin/Potassium Clav [Augmentin 500-125 Tablet] 1 tab PO Q12HR 7 Days #14 tab predniSONE 10 mg PO DIRECTED 9 Days #18 tab Warfarin [Coumadin] 5 mg PO DAILY 30 Days #30 tab Continue Pravastatin Sodium [Pravachol] 10 mg PO HS Cholecalciferol [Vitamin D3] 2,000 unit PO DAILY Fluticasone Propionate [Flonase Allergy Relief] 2 spray EA NOSTRIL DAILY PRN PRN Reason: Allergy Symptoms Diclofenac Sodium/Misoprostol [Arthrotec 75 mg-200 Mcg Tab] 1 tab PO BID Omeprazole [PriLOSEC] 20 mg PO AC-BRKFST PRN PRN Reason: gerd Cetirizine HCl [Zyrtec] 10 mg PO HS PRN PRN Reason: Allergy Symptoms cycloSPORINE [Restasis] 1 applicator BOTH EYES BID Niacin [Niacin ER] 500 mg PO DAILY Cod Liver Oil 1 cap PO DAILY Biotin 1000mg 1,000 mg PO DAILY Cyanocobalamin (Vitamin B-12) [Vitamin B-12] 1,000 mcg PO MOTH ALPRAZolam [Xanax] 0.25 mg PO HS [place]-3 Fatty Acids [[place]-3] 1,000 mg PO DAILY L.acidoph,Paracasei, B.lactis [Probiotic] 1 cap PO DAILY diphenhydrAMINE HCL [Benadryl] 25 mg PO QID PRN PRN Reason: Allergy Symptoms buPROPion XL [Wellbutrin XL] 150 mg PO BID Discontinued Aspirin/Calcium Carbonate/Mag [Buffered Aspirin 325 mg Tb] 325 mg PO DAILY Moxifloxacin HCl [Avelox] 400 mg PO DAILY Discharge Medication List Cetirizine HCl [Zyrtec] 10 mg PO HS PRN 08/03/14 [History] Cholecalciferol [Vitamin D3] 2,000 unit PO DAILY 08/03/14 [History] Cod Liver Oil 1 cap PO DAILY 08/03/14 [History] Diclofenac Sodium/Misoprostol [Arthrotec 75 mg-200 Mcg Tab] 1 tab PO BID 08/03/14 [History] Fluticasone Propionate [Flonase Allergy Relief] 2 spray EA NOSTRIL DAILY PRN 08/03/14 [History] Niacin [Niacin ER] 500 mg PO DAILY 08/03/14 [History] Omeprazole [PriLOSEC] 20 mg PO AC-BRKFST PRN 08/03/14 [History] Pravastatin Sodium [Pravachol] 10 mg PO HS 08/03/14 [History] cycloSPORINE [Restasis] 1 applicator BOTH EYES BID 08/03/14 [History] ALPRAZolam [Xanax] 0.25 mg PO HS 08/04/18 [History] Biotin 1000mg 1,000 mg PO DAILY 08/04/18 [History] Cyanocobalamin (Vitamin B-12) [Vitamin B-12] 1,000 mcg PO MOTH 08/04/18 [History] L.acidoph,Paracasei, B.lactis [Probiotic] 1 cap PO DAILY 08/04/18 [History] [place]-3 Fatty Acids [[place]-3] 1,000 mg PO DAILY 08/04/18 [History] buPROPion XL [Wellbutrin XL] 150 mg PO BID 08/04/18 [History] diphenhydrAMINE HCL [Benadryl] 25 mg PO QID PRN 08/04/18 [History] Amoxicillin/Potassium Clav [Augmentin 500-125 Tablet] 1 tab PO Q12HR 7 Days #14 tab 08/10/18 [Rx] Warfarin [Coumadin] 5 mg PO DAILY 30 Days #30 tab 08/10/18 [Rx] amLODIPine [Norvasc] 5 mg PO DAILY 30 Days #30 tab 08/10/18 [Rx] predniSONE 10 mg PO DIRECTED 9 Days #18 tab 08/10/18 [Rx] Follow up Appointment(s)/Referral(s): Tressa Farris MD [Primary Care Provider] - 1-2 days Ambulatory/Diagnostic Orders: Prothrombin Time INR [LAB.AMB] Time Frame: 2 Days, Location: None Selected Prothrombin Time INR [LAB.AMB] Time Frame: 4 Days, Location: None Selected Activity/Diet/Wound Care/Special Instructions: Activity as tolerated Diet heart healthy, low vitamin K diet Patient to follow-up with Dr. farris and have PT/INR checked in 2 days..
[2018-08-10] MEDS ORDERED: WARFARIN 5 MG TAB PO ONE (18:00)
== END 2018-08-10 12:08 | disposition home or self-care (01) | DRG 300 ==
LOC: EC 14:57 → 1SOBS 20:00 → OBSVTOIN 08-05 13:32 → 3NMEDONC 08-06 16:00
PROVIDERS: ADMIT Internal Medicine; ATTEND Internal Medicine
DX: I82.411 Acute embolism and thrombosis of right femoral vein (principal); J44.0 Chronic obstructive pulmonary disease with (acute) lower respiratory infection; J98.11 Atelectasis; N39.0 Urinary tract infection, site not specified; E78.5 Hyperlipidemia, unspecified; F17.200 Nicotine dependence, unspecified, uncomplicated; I10 Essential (primary) hypertension; J01.00 Acute maxillary sinusitis, unspecified; K21.9 Gastro-esophageal reflux disease without esophagitis; K44.9 Diaphragmatic hernia without obstruction or gangrene; M19.90 Unspecified osteoarthritis, unspecified site; R79.1 Abnormal coagulation profile; Z79.82 Long term (current) use of aspirin; Z79.899 Other long term (current) drug therapy; Z96.653 Presence of artificial knee joint, bilateral; Z98.42 Cataract extraction status, left eye
CPT/HCPCS: 36415; 70486; 71046; 71275; 80053; 81001; 83880; 84484; 85025; 85379; 85610; 85730; 87086; 87502; 93005; 93306; 93970; 94640; 96374; 99285

== ENCOUNTER → 2018-11-16 | Outpatient (CLI) | payer MEDICARE ==
--- NOTE | 2018-11-16 12:06 | CT ---
EXAMINATION TYPE: CT sinus wo con DATE OF EXAM: 11/16/2018 COMPARISON: 08/05/2018 HISTORY: 78-year-old female Chronic sinusitis CT DLP: 609.4 mGycm Automated exposure control for dose reduction was used. TECHNIQUE: Noncontrast axial views of the paranasal sinuses were obtained. Coronal reconstructions pe rformed. FINDINGS: PARANASAL SINUSES: There are no air-fluid levels in the bilateral maxillary and sphenoid sinuses. Scattered air-fluid le vels and mucosal thickening within the ethmoid air cells as well. Frontal sinuses are well pneumatized. Reactive nakita- osteogenesis is not seen. There is no destruction of the osseous robert of the paranasal sinuses. THE NASAL CAVITY: The osteomeatal complexes are patent. Minimal rightward nasal septal deviation. The imaged brain and orbits are normal in appearance. Normal variation hyperostosis frontalis interna . Mastoid air cells and middle ear cavities are well pneumatized. Reformatted images confirm above findings. IMPRESSION: There are now air-fluid levels within the maxillary, ethmoid, and sphenoid sinuses. Correlate for rec urrent or progressive acute sinusitis.
== END | disposition home or self-care (01) ==
LOC: RADCTMAIN 11:15
PROVIDERS: ATTEND Otolaryngology
DX: J34.89 Other specified disorders of nose and nasal sinuses (principal); J32.9 Chronic sinusitis, unspecified
CPT/HCPCS: 70486

== ENCOUNTER → 2019-03-21 | Outpatient (CLI) | payer MEDICARE ==
--- NOTE | 2019-03-21 15:31 | MR ---
EXAMINATION TYPE: MR brain wo/w con DATE OF EXAM: 03/21/2019 COMPARISON: Sinus CT November 16, 2018 HISTORY: Visual disturbance, with disorientation following for approximately 2 hours, TIA TECHNIQUE: Multiplanar, multisequence images of the brain and brainstem is performed without and with IV contras t, utilizing 10 mL intravenous Gadavist . FINDINGS: Diffusion weighted images demonstrate no evidence of a recent infarct or other diffusion ab normality. There is no worrisome extra-axial fluid collection. Mild ventricular and sulcal prominenc e. Scattered areas of T2 hyperintensity throughout the superficial, deep, and periventricular white m atter. Lesions are nonspecific in appearance and distribution but are presumed on the basis of produc t of chronic small vessel ischemic change in patient this age. Midline structures demonstrate normal morphology. The craniocervical junction appears within normal limits. Post contrast images demonstrate oval homogeneous enhancing extra-axial 2.6 x 1.7 cm by 1.6 cm craniocaudal dimension: 24 mass likely reflecting a meningioma along the anterior margin of the up per cerebellum. The dural venous sinuses appear patent. Mild mucosal thickening bilateral maxillary s inuses and ethmoid sinuses. Mild mucosal thickening with some dependent fluid left sphenoid sinus. Ti ny air-fluid level right maxillary sinus remains present. IMPRESSION: 1. There is small extra axial heterogeneous enhancing mass suspected meningioma anterior superior asp ect of the posterior fossa with local mass effect noted on the adjacent cerebellum. 2. Background mild diffuse cerebral atrophy mild to moderate chronic small vessel ischemic changes. 3. Acute on chronic paranasal sinus disease as detailed above is improved from recent sinus CT.
== END | disposition home or self-care (01) ==
LOC: RADMRIMAIN 11:46
PROVIDERS: ATTEND Family Medicine
DX: G31.1 Senile degeneration of brain, not elsewhere classified (principal); I67.82 Cerebral ischemia; G45.9 Transient cerebral ischemic attack, unspecified
CPT/HCPCS: 70553

== ENCOUNTER → 2019-06-06 | Outpatient (CLI) | payer MEDICARE ==
--- NOTE | 2019-06-07 13:04 | MM ---
Reason for exam: screening (asymptomatic). Last mammogram was performed 1 year and 1 month ago. History: Patient is postmenopausal and is nulliparous. Family history of breast cancer in maternal cousin at age 65. Took hormonal contraceptives for 4 years. Physical Findings: A clinical breast exam by your physician is recommended on an annual basis and results should be correlated with mammographic findings. MG 3D Screening Mammo W/Cad Bilateral CC and MLO view(s) were taken. Prior study comparison: May 12, 2018, bilateral MG 3d screening mammo w/cad. January 23, 2017, bilateral MG 3d screening mammo w/cad. There are scattered fibroglandular densities. Scattered benign oil cyst calcifications. No significant changes when compared with prior studies. ASSESSMENT: Negative, BI-RAD 1 RECOMMENDATION: Routine screening mammogram of both breasts in 1 year.
== END | disposition home or self-care (01) ==
LOC: RADMAMWWP 10:48
PROVIDERS: ATTEND Family Medicine
DX: Z12.31 Encounter for screening mammogram for malignant neoplasm of breast (principal)
CPT/HCPCS: 77063; 77067

== ENCOUNTER → 2020-11-13 | Outpatient (CLI) | payer MEDICARE ==
--- NOTE | 2020-11-13 17:14 | US ---
EXAMINATION TYPE: US venous doppler duplex UE LT DATE OF EXAM: 11/13/2020 COMPARISON: NONE CLINICAL HISTORY: Contusion LUE S40.022A. Bruising SIDE PERFORMED: Left Left Arm: Negative for DVT IMPRESSION: No evidence of deep vein thrombosis in the left arm.
== END | disposition home or self-care (01) ==
LOC: RADUSWWP 16:16
PROVIDERS: ATTEND Family Medicine
DX: S40.022A Contusion of left upper arm, initial encounter (principal); X58.XXXA Exposure to other specified factors, initial encounter

== ENCOUNTER → 2021-01-28 | Outpatient (CLI) | payer MEDICARE | END | disposition home or self-care (01) | LOC: LABWHC1 09:47 | PROVIDERS: ATTEND Family Medicine | DX: Z20.822 Contact with and (suspected) exposure to COVID-19 (principal) | CPT/HCPCS: 36415; 86769 ==